=== PATIENT | female | born 1950 | race Caucasian/White ===

== ENCOUNTER → 2018-08-17 15:33 | Outpatient (CLI) | payer MEDICARE, SELFPAY ==
[2018-08-17 15:47] LABS: Pathologist Comment May follow
[2018-08-17 18:07] LABS: RBC /Synovial Fluid 0.003 10^6/uL (0); Synovial Fld Polynuclear WBC # 3.585 10^3/ul
[2018-08-17 18:09] LABS: AUTO B FLUID DILUENT BKGD CT WBC <0.1 RBC <0.01 (W<.1,R<.01); Appearance /Synovial Fluid Sl Cl (CLEAR); Color / Synovial Fluid Yellow (Pale Yellow); Lymph 2 %; Monocyte /Synovial Fluid 9 %; Neutrophil 89 % (0-25); Source / Synovial Fluid NG; Source- Body Fluid SYNOVIAL
[2018-08-17 18:10] LABS: Body Fluid QC Type(s) BF1Q,BF2Q
[2018-08-20 13:56] LABS: Pathologist Review Reviewed
--- OUTSIDE RECORDS SUMMARY | 2018-11-21 06:30 | XMS RPT_ITS ---
:1950 Author Organization OHIP Support Name Relationship Address Phone AKHIL HOANG Unavailable [address] + [place] [address] R Unavailable Unavailable Unavailable AKHIL HOANG Unavailable [address] + [place] [address] R Unavailable Unavailable Unavailable R Unavailable Unavailable Unavailable NOT GIVEN Unavailable Unavailable Unavailable AKHIL HOANG Unavailable [address] [place] [address] TINA CANADA Unavailable Unavailable + NOT GIVEN Unavailable Unavailable Unavailable AKHIL HOANG Unavailable [address] [place] [address] TINA CANADA Unavailable Unavailable + NOT GIVEN Unavailable Unavailable Unavailable AKHIL HOANG Unavailable [address] [place] [address] TINA CANADA Unavailable Unavailable + NOT GIVEN Unavailable Unavailable Unavailable AKHIL HOANG Unavailable [address] [place] [address] TINA CANADA Unavailable Unavailable + NOT GIVEN Unavailable Unavailable Unavailable AKHIL HOANG Unavailable [address] [place] [address] TINA CANADA Unavailable Unavailable + AKHIL HOANG Unavailable [address] [place] [address] TINA CANADA Unavailable Unavailable + Care Team Providers Name Role Phone BHAVANI MORAN MD Admitting Unavailable BHAVANI MORAN MD Attending Unavailable BHAVANI MORAN MD Primary Care Unavailable BHAVANI MORAN MD Consulting Unavailable PROVIDER, UNKNOWN Consulting Unavailable PROVIDER, UNKNOWN Consulting Unavailable BHAVANI MORAN MD Admitting Unavailable BHAVANI MORAN MD Attending Unavailable BHAVANI MORAN MD Primary Care Unavailable BHAVANI MORAN MD Consulting Unavailable PROVIDER, UNKNOWN Consulting Unavailable PROVIDER, UNKNOWN Consulting Unavailable PROVIDER, UNKNOWN Consulting Unavailable ADRIANE DONG MD Admitting Unavailable ADRIANE DONG MD Attending Unavailable ADRIANE DONG MD Primary Care Unavailable BHAVANI MORAN MD Consulting Unavailable PROVIDER, UNKNOWN Consulting Unavailable PROVIDER, UNKNOWN Consulting Unavailable PROVIDER, UNKNOWN Consulting Unavailable BHAVANI MORAN MD Admitting Unavailable BHAVANI MORAN MD Attending Unavailable BHAVANI MORAN MD Primary Care Unavailable BHAVANI MORAN MD Consulting Unavailable PROVIDER, UNKNOWN Consulting Unavailable PROVIDER, UNKNOWN Consulting Unavailable PROVIDER, UNKNOWN Consulting Unavailable BHAVANI MORAN MD Admitting Unavailable BHAVANI MORAN MD Attending Unavailable BHAVANI MORAN MD Primary Care Unavailable BHAVANI MORAN MD Consulting Unavailable PROVIDER, UNKNOWN Consulting Unavailable PROVIDER, UNKNOWN Consulting Unavailable PROVIDER, UNKNOWN Consulting Unavailable BHAVANI MORAN MD Admitting Unavailable BHAVANI MORAN MD Attending Unavailable BHAVANI MORAN MD Primary Care Unavailable BHAVANI MORAN MD Consulting Unavailable PROVIDER, UNKNOWN Consulting Unavailable PROVIDER, UNKNOWN Consulting Unavailable PROVIDER, UNKNOWN Consulting Unavailable DEAN ACUNA, DR. Elver BECKHAM Attending Unavailable DEAN ACUNA, DR. 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 without organ or systems involvement / M05.79(ICD-10) 07/02/2018 Admitting Bladimir's diseaseDEAN MD., Active Janice [facility] Diagnosis [facility] [place] / M02.30(ICD-10) Repository 05/22/2018 Admitting Localized DEAN ACUNA, Active [facility] Diagnosis swelling, mass J [facility] and lump, left Repository lower limb / R22.42(ICD-10) PROCEDURES PROCEDURES No Procedure Records FoundRESULTS RESULTS MISCELLANEOUS LAB Collected: 09/06/2018 Status: F Source: [place] PROCEDURE 7:11 AM [facility] REPOSITORY Order Comment: Comments: VECTRA Test(s) Ordered: VECTRA TYPE CODE TESTS RESULT OUT OF RANGE REFERENCE UNITS LAB L801.1541 Normal [facility] TEST Result Comment: Sent directly to testing facility per ordering physician. @ 09/17/18 1347 MYOUNG Performed By: #### L801.1541 #### [facility] [place], [address] CBC W/DIFF, AUTOMATED Collected: 08/24/2018 Status: C Source: [place] 8:09 AM [facility] REPOSITORY TYPE CODE TESTS RESULT OUT OF RANGE REFERENCE UNITS LAB L100.1000 4.4-11.0 K/mm3 High WBC 19.7 LAB L100.1200 4.2-5.4 M/mm3 Normal RBC 5.03 LAB L100.1300 12.0-15.0 g/dl Normal HGB 14.3 LAB L100.1400 37-47 % Normal HCT 44.0 LAB L100.1500 81-99 fL Normal MCV 87.5 LAB L100.1600 27.0-32.0 pg Normal MCH 28.4 LAB L100.1700 32-36 g/gl Normal MCHC 32.5 LAB L100.1810 11.6-14.6 % High RDW CV 14.9 LAB L100.1820 35.1-43.9 fl High RDW SD 47.8 LAB L100.1900 150-450 K/mm3 Normal PLT 362 LAB L100.2000 6.2-12.0 fl Normal MPV 10.4 LAB L100.2100 47-70 % High NEUT% 82.3 LAB L100.2200 19-41 % Low LY% 8.7 LAB L100.2300 0-10 % Normal MONO% 5.5 LAB L100.2400 0-5 % Normal EO% 0.5 LAB L100.2500 0-1 % Normal BASO% 0.3 LAB L100.2550 0.0-0.9 % High IM GRAN % 2.700 Result Comment: IG% - Immature Granulocytes (promyelocytes, myelocytes and metamyelocytes) > 1% indicates that a LEFT SHIFT is Present. LAB L100.2620 2.0-7.7 X10 3/uL High Absolute Neut 16.2 LAB L100.2720 0.83-4.51 X10 3/ul Normal Absolute Lymph 1.72 LAB L100.9900 Normal PATH REV Reviewed Result Comment: Neutrophilic leukocytosis. Clinical correlation necessary. Hammad Hdez M.D. 08/27/18 AMENDED REPORT 08/27/18 1000 PATH REV previously reported as: January nell Performed By: #### L100.0100 #### [facility] [address] [place], [address] COMPREHENSIVE METABOLIC Collected: 08/24/2018 Status: F Source: [place] [facility] 8:09 AM [facility] REPOSITORY TYPE CODE TESTS RESULT OUT OF RANGE REFERENCE UNITS LAB L501.0100 74-106 mg/dL High GLU 119 Result Comment: Fasting Glucose result from 100 to 125 mg/dL suggests IMPAIRED HOMEOSTASIS per A.D.A. criteria. Please note revised GLUCOSE reference range effective 2017. LAB L501.1000 7-18 mg/dL High BUN 22 LAB L501.1100 0.55-1.02 mg/dL Normal CREAT,SERUM 0.72 Result Comment: The validity of the calculated GFR AND GFRAA in patients over 70 years has not been determined. Clinical correlation is essential. LAB L501.1110 >60 mL/min Normal EST GFR 85 Result Comment: Non- GFR Calc LAB L501.1115 >60 mL/min Normal EST GFR - AA 103 Result Comment: GFR Calc LAB L501.1300 10-20 RATIO High BUN/CRE 30.5 LAB L501.1500 6.4-8.2 g/dL T Normal PROT 7.4 LAB L501.1800 3.2-5.0 g/dL Normal ALB 3.5 LAB L501.1950 2.2-4.2 g/dL Normal GLOB 3.9 LAB L501.2000 0.9-2.4 RATIO Normal A/G 0.9 LAB L501.2200 8.5-10.1 mg/dL CA Normal 8.9 LAB L501.4100 15-37 U/L Normal AST 18 LAB L501.4305 45-117 U/L Normal ALK P 92 LAB L501.4405 13-56 U/L Normal ALT 40 LAB L501.4600 0.20-1.00 mg/dL T Normal BILI 0.30 LAB L501.5300 136-145 mmol/L NA Normal 142 LAB L501.5600 3.5-5.1 mmol/L K Normal 3.8 LAB L501.5900 98-107 mmol/L CL Normal 105 LAB L501.6100 21.0-32.0 mmol/L Normal CO2 28.0 LAB L501.6200 5-15 Normal GAP 9 Performed By: #### L500.4050, L505.7010 #### [facility] [address] [place], [place], [address] RHEUMATOID FACTOR Collected: 08/24/2018 Status: F Source: [place] 8:09 AM [facility] REPOSITORY TYPE CODE TESTS RESULT OUT OF REFERENCE UNITS RANGE LAB L505.7010 <15 IU/mL High RHEUMATOID FAC 706.0 Performed By: #### L500.4050, L505.7010 #### [facility] [address] [place], [place], [id number] HEPATITIS B SURFACE Collected: 08/24/2018 Status: F Source: [place] AG 8:09 AM [facility] REPOSITORY TYPE CODE TESTS RESULT OUT OF RANGE REFERENCE UNITS LAB L3100.0400 Negative Normal HB Negative SURF AG Result Comment: Performed at: - [facility] [address] [id number] Revenue Cycle Administrator: Rogelio Patel PhD, Phone: [phone] Performed at: - [facility] [address] [id number] Revenue Cycle Administrator: Caroline Montesinos MD, Phone: [phone] Performed By: #### L3100.0390, L3100.0528, L3100.0625, L4600.0100 #### [facility] (refer to report for specific site) refer to report for address and phone number HEP B SURFACE Collected: 08/24/2018 Status: F Source: [place] ANTIBODIES 8:09 AM [facility] REPOSITORY TYPE CODE TESTS RESULT OUT OF RANGE REFERENCE UNITS LAB L3100.0528 . Normal Hep B Non Reactive Rena AB Result Comment: Non Reactive: Inconsistent with immunity, less than 10 mIU/mL Reactive: Consistent with immunity, greater than 9.9 mIU/mL Performed By: #### L3100.0390, L3100.0528, L3100.0625, L4600.0100 #### [facility] (refer to report for specific site) refer to report for address and phone number HEPATITIS C ANTIBODIES Collected: 08/24/2018 Status: F Source: [place] 8:09 AM [facility] REPOSITORY TYPE CODE TESTS RESULT OUT OF RANGE REFERENCE UNITS LAB L3100.0650 0.0-0.9 s/co ratio Normal HEP C AB <0.1 Result Comment: Negative: < 0.8 Indeterminate: 0.8 - 0.9 Positive: > 0.9 The CDC recommends that a positive HCV antibody result be followed up with a HCV Nucleic Acid Amplification test (123348). Performed By: #### L3100.0390, L3100.0528, L3100.0625, L4600.0100 #### [facility] (refer to report for specific site) refer to report for address and phone number CCP IGG ANTIBODIES Collected: 08/24/2018 Status: F Source: [place] 8:09 AM [facility] REPOSITORY TYPE CODE TESTS RESULT OUT OF REFERENCE UNITS RANGE LAB L4600.0100 0-19 units High ANTI-CCP > 250 [id number] Result Comment: Negative <20 Weak positive 20 - 39 Moderate positive 40 - 59 Strong positive >59 Performed By: #### L3100.0390, L3100.0528, L3100.0625, L4600.0100 #### [facility] (refer to report for specific site) refer to report for address and phone number SYNOVIAL FLUID RBC, Collected: 08/17/2018 Status: F Source: [place] WBC AND DIFF 9:40 AM [facility] REPOSITORY TYPE CODE TESTS RESULT OUT OF RANGE REFERENCE UNITS LAB L200.5050 0.000-0.000 10 3 uL High SYN Tot 7.[address] Result Comment: This is the Total Number of Nucleated Cell Types in the Body Fluid. LAB L200.5100 0 10 6/uL High SYNOVIAL RBC 0.003 LAB L200.5200 0.000-0.002 10 3uL High SYNOVIAL WBC 7.4680 LAB L200.5260 % SYBF PMN Normal WBC% 48.0 LAB L200.5270 10 3/ul SYBF PMN Normal WBC# 3.585 LAB L200.5280 % SYBF MN Normal WBC% 52.0 LAB L200.5800 PATH Normal COM/SYFL May follow LAB L200.4600 SYNOVIAL Normal SOURCE NG LAB L200.4900 Pale Yellow SYNOVIAL Normal COLOR Yellow LAB L200.5000 CLEAR SYNOVIAL Normal FABIANO. Sl Cl LAB L200.5300 0-25 % High NEUTROPHIL 89 LAB L200.5400 % LYMPH Normal 2 LAB L200.5500 % MONO Normal 9 Performed By: #### L200.0400, L200.4175 #### [facility] [address] [place], [address] CRYSTALS, BODY FLUID Collected: 08/17/2018 Status: C Source: [place] 9:40 AM [facility] REPOSITORY TYPE CODE TESTS RESULT OUT OF RANGE REFERENCE UNITS LAB L200.4200 Normal SEE PATH REV CRYSTALS/BF LAB L200.4225 Normal SYNOVIAL SOURCE/BF LAB L200.6020 Normal PATH Reviewed REV Result Comment: Negative for malignant cells and crystals. Acute inflammation. Hammad Hdez M.D. 08/20/18 AMENDED REPORT 08/20/18 1356 PATH REV previously reported as: Will follow Performed By: #### L200.0400, L200.4175 #### [facility] [address] [place], [address] Observed: 08/17/2018 Status: F Source: [place] CULTURE, BODY FLUID 9:40 AM [facility] REPOSITORY List Antibiotics Last 48 Hours? UNK List Antibiotics to be Started? UNK Gram Stain Gram Stain 2+ White Blood Cells 2+ Red Blood Cells No organisms seen Body Fluid Cult No growth in 6 days. Cult, Anaerobic No growth in 5 days. Performed By: #### M100.1300 #### [facility] [address] [place], [address] CBC Collected: 07/02/2018 Status: F Source: [facility] 11:24 AM [facility] REPOSITORY TYPE CODE TESTS RESULT OUT OF REFERENCE UNITS RANGE LAB WBC(LOINC) 4.50-10.80 10 3/mcL High WBC 10.90 LAB RBCCT(LOINC 4.10-5.30 10 6/mcL ) RBC 4.59 LAB HGB(LOINC) 12.0-16.0 G/dL Hgb 13.6 LAB HCT(LOINC) 34.0-46.0 % Hct 40.6 LAB MCV(LOINC) 80.0-99.0 fL MCV 88.5 LAB MCH(LOINC) 27.0-33.0 pg MCH 29.7 LAB MCHC(LOINC) 32.0-36.0 G/dL MCHC 33.6 LAB RDW(LOINC) 11.5-15.5 % RDW 14.5 LAB PLT(LOINC) 150-450 10 3/mcL Platelet 356 LAB MPV(LOINC) 6.6-10.5 fL MPV 9.6 Performed By: #### CBC, ADIFF, ANEU, ESR, RF, TIERNEY, JUAN #### [address] [address] .AUTO DIFF Collected: 07/02/2018 Status: F Source: [facility] 11:24 AM [facility] REPOSITORY TYPE CODE TESTS RESULT OUT OF REFERENCE UNITS RANGE LAB NICKOLAS(LOINC) 50.0-75.0 % Neutrophil % 72.6 LAB LYM(LOINC) 20.0-40.0 % Low Lymphocyte % 16.8 LAB MON(LOINC) 2.0-13.0 % Monocyte % 8.3 LAB EO(LOINC) 0.0-6.0 % Eosinophil % 1.7 LAB BAS(LOINC) 0.0-2.5 % Basophil % 0.6 LAB ABLYM(LOIN 0.90-4.32 10 3/mcL C) Lymphocyte, 1.80 Absolute LAB MARTIN(LOINC 0.09-1.40 10 3/mcL ) Monocyte, 0.90 Absolute LAB AEOS(LOINC 0.00-0.65 10 3/mcL ) Eosinophil, 0.20 Absolute LAB ABAS(LOINC 0.00-0.27 10 3/mcL ) Basophil, 0.10 Absolute Performed By: #### CBC, ADIFF, ANEU, ESR, RF, TIERNEY, JUAN #### [address] [address] .NEUABS Collected: 07/02/2018 Status: F Source: [facility] 11:24 AM [facility] REPOSITORY TYPE CODE TESTS RESULT OUT OF REFERENCE UNITS RANGE LAB ANEU(LOINC) 2.25-8.10 10 3/mcL Neutrophil, 7.90 Absolute Performed By: #### CBC, ADIFF, ANEU, ESR, RF, TIERNEY, JUAN #### [place] [id number] ESR Collected: 07/02/2018 Status: F Source: [facility] 11:24 AM [facility] REPOSITORY TYPE CODE TESTS RESULT OUT OF REFERENCE UNITS RANGE LAB ESR(LOINC) 0-30 mm/hr Erythrocyte High Sed Rate 32 Performed By: #### CBC, ADIFF, ANEU, ESR, RF, TIERNEY, JUAN #### [place] [address] RF Collected: 07/02/2018 Status: F Source: [facility] 11:24 AM [facility] REPOSITORY TYPE CODE TESTS RESULT OUT OF REFERENCE UNITS RANGE LAB RF(LOINC) Rheumatoid >196.4 Factor Result Comment: RF IgM Antibody by Enzyme Immunoassay: Negative < or = 6 Positive > 6 A positive result indicates the presence of RF antibodies and suggests the possibility of rheumatoid arthritis. A negative result indicates no RF IgM antibody or levels below the negative cut-off of the assay. Results of this assay should be used in conjunction with clinical findings and other serological tests. These results were obtained with the Ambassador QUANTA Lite RF IgM RAOUL. RF IgM values obtained with different manufacturers' assay methods may not be used interchangeably. The magnitude of the reported IgM levels cannot be correlated to an endpoint titer. Performed By: #### CBC, ADIFF, ANEU, ESR, RF, TIERNEY, JUAN #### [place] [address] TIERNEY Collected: 07/02/2018 Status: F Source: [facility] 11:24 AM [facility] REPOSITORY TYPE CODE TESTS RESULT OUT OF RANGE REFERENCE UNITS LAB TIERNEY(LOINC) Neg 40 TIERNEY See Titer Performed By: #### CBC, ADIFF, ANEU, ESR, RF, TIERNEY, JUAN #### [place] [address] JUAN Collected: 07/02/2018 Status: F Source: [facility] 11:24 AM [facility] REPOSITORY TYPE CODE TESTS RESULT OUT OF REFERENCE UNITS RANGE LAB ANAT1(LOIN C) 40 TIERNEY Titer 1 LAB ANAP1(LOIN C) Homogeneous TIERNEY Pattern 1 Result Comment: At [place], an TIERNEY titer of less than 160 is not considered suggestive of significant rheumatoid disease. If clinical suspicion is high, suggest repeat testing in 1-2 months. Performed By: #### CBC, ADIFF, ANEU, ESR, RF, TIERNEY, JUAN #### [facility] [address] [place] [address] TIB/FIB C+ LT Observed: 05/23/2018 Status: F Source: [place] 1:24 PM [facility] [address] [place], [place] [address] Patient: LASHELL HOANG Phone#: : 1950 Age: 68 Gender: F Pt. Type: Out Account: [id number] Location: Ordering: BHAVANI HOSKINS Exam Date: 05/23/2018/13:04 Family Phys: PHYSICIAN Charge Code: [id number] Physician: [place] Order #: [id number] DLP Dose#: PROCEDURE: CT TIB FIB LT WITH CONTRAST COMPARISON: [facility], , VENOUS DOPPLER LT LEG, 05/21/2018, 12:49. [facility], VENOUS DOPPLER LT LEG, 05/10/2018, 15:06. INDICATIONS: Left leg mass TECHNIQUE: After obtaining the patient's consent, multi-planar CT images were created without and with non-ionic intravenous contrast material. All CT scans at this facility use dose modulation, iterative reconstruction, and/or weight based dosing when appropriate to reduce radiation dose to as low as reasonably achievable. IV CONTRAST: Omnipaque 350,70ml TOTAL DOSE: 13.50 CTDIvol(mGy) FINDINGS: BONES: No fracture or dislocation. Fabella incidentally noted. There are subchondral cyst formation in the lateral compartment with femoral and tibial spurring. SOFT TISSUES: Posterior to the knee is a Odom's cysts. This corresponds to the ultrasound finding. The Odom's cyst demonstrates mild rim enhancement. The collection measures 10.8 x 2.1 x 4.7 cm. The fluid collection contains numerous radiolucent foci throughout the fluid. The foci measure H. U -469 to -678, most consistent with gas. EFFUSION: There is a trace joint effusion. OTHER: Negative. CONCLUSION: 1. Large Odom's cyst demonstrating mild peripheral enhancement and internal foci of gas. This appearance is most worrisome for infection, however rarely gas containing stones may appear similar. 2. Degenerative changes of the lateral compartment. Continued Report - Page 2 of 2 Patient: LASHELL HOANG Phone#: : 1950 Age: 68 Gender: F Pt. Type: Out Account: [id number] Location: Ordering: BHAVANI MORAN Exam Date: 05/23/2018/13:04 Family Phys: PHYSICIAN Charge Code: [id number] Physician: [place] Order #: [id number] DLP Dose#: This report was communicated by telephone to Monique Melissa RN, at the dictation time shown below. Dictated by: Jocelyn Cisse MD on 05/23/2018 at 16:29 Approved by: Jocelyn Cisse MD on 05/23/2018 at 16:34 BMP Collected: 05/22/2018 Status: F Source: [place] 10:46 AM [facility] REPOSITORY TYPE CODE TESTS RESULT OUT OF REFERENCE UNITS RANGE LAB GLU(LOINC) 82-115 mg/dL Glucose High Level 140 LAB NA(LOINC) 136-145 mEq/L Sodium Level 139 LAB K(LOINC) 3.5-5.0 mEq/L Potassium Level 3.6 LAB CL(LOINC) 98-110 mEq/L Chloride 102 LAB CO2(LOINC) 22-32 mEq/L CO2 25 LAB EBAL(LOINC 4.0-15.0 mEq/L ) Electrolyte Balance 12.0 LAB BUN(LOINC) 8.0-22.0 mg/dL BUN 20.0 LAB CRE(LOINC) 0.50-1.20 mg/dL Creatinine Lvl (s) 0.55 LAB BC(LOINC) 10.0-22.0 ratio High BUN/Creatinine 36.4 Ratio LAB CA(LOINC) 8.4-10.1 mg/dL Calcium Lvl 9.9 Performed By: #### BMP, GFR #### [place] [address] .GFR Collected: 05/22/2018 Status: F Source: [facility] 10:46 AM [facility] REPOSITORY TYPE CODE TESTS RESULT OUT OF REFERENCE UNITS RANGE LAB GFRAA(LOINC ml/min/1.73 ) sqm GFR >60 [place] Result Comment: GFR Population mean for , Non- Americans Ages 20-29 = 116 mL/min/1.73 sq.m. Ages 30-39 = 107 mL/min/1.73 sq.m. Ages 40-49 = 99 mL/min/1.73 sq.m. Ages 50-59 = 93 mL/min/1.73 sq.m. Ages 60-69 = 85 mL/min/1.73 sq.m. Ages 70+ = 75 mL/min/1.73 sq.m. Chronic Kidney Disease: Less than 60 mL/min/1.73 square meters End Stage Renal Disease: Less than 15 mL/min/1.73 square meters LAB GFRNO(LOINC) ml/min/1.73sqm GFR Non- >60 Result Comment: GFR Population mean for , Non- Americans Ages 20-29 = 116 mL/min/1.73 sq.m. Ages 30-39 = 107 mL/min/1.73 sq.m. Ages 40-49 = 99 mL/min/1.73 sq.m. Ages 50-59 = 93 mL/min/1.73 sq.m. Ages 60-69 = 85 mL/min/1.73 sq.m. Ages 70+ = 75 mL/min/1.73 sq.m. Chronic Kidney Disease: Less than 60 mL/min/1.73 square meters End Stage Renal Disease: Less than 15 mL/min/1.73 square meters Performed By: #### BMP, GFR #### [place] [address] CV VENOUS LEG LT Observed: 05/21/2018 Status: F Source: [place] 1:32 PM [place] [address] Patient: LASHELL HOANG Phone#: : 1950 Age: 68 Gender: F Pt. Type: Out Account: [id number] Location: Ordering: BHAVANI MORAN Exam Date: 05/21/2018/12:49 Family Phys: Charge Code: [id number] Physician: [place] Order #: [id number] DLP Dose#: PROCEDURE: VENOUS DOPPLER LT LEG COMPARISON: [facility], , VENOUS DOPPLER LT LEG, 05/10/2018, 15:06. INDICATIONS: Swelling TECHNIQUE: Color duplex Doppler ultrasound evaluation analysis was performed in the usual manner. ADVANCED MANUFACTURING TECHNICIAN: JOHNNY RISK FACTORS FOR VENOUS DISEASE: Other Pain and swelling EXAMINATION: RIGHT +Present -Reduced o Absent LEFT SPONT PHASIC AUG REFLUX COMP SPONT PHASIC AUG REFLUX COMP + + + o + CFV + + + o + SFJ + FV (prox) + + + o + FV (mid) + FV (dist) + POP V + + + o + T/P TRUNK + + + o + PTV + + + o + PERONEAL V + + + o + GSV + GASTROC SOLEAL V ADVANCED MANUFACTURING TECHNICIAN'S NOTES: Continued Report - Page 2 of 2 Patient: LASHELL HOANG Phone#: : 1950 Age: 68 Gender: F Pt. Type: Out Account: [id number] Location: Ordering: BHAVANI MORAN Exam Date: 05/21/2018/12:49 Family Phys: Charge Code: [id number] Physician: [place] Order #: [id number] DLP Dose#: A heterogenous structure containing some blood flow is noted in the popliteal fossa and extends into the mid posterior calf. FINDINGS: THROMBI: None visible. COMPRESSIBILITY: Normal. OTHER: In the posterior calf extending from the popliteal fossa to the mid posterior calf is a complex mass with internal cystic components and internal blood flow. In cross section the mass measures 4.8 x 2.3 cm. CONCLUSION: 1. No evidence of deep venous thrombosis in the left lower extremity. 2. Posterior mass extending from the popliteal fossa to the mid calf. Recommend further evaluation with contrast-enhanced MRI or CT. Dictated by: Jocelyn Cisse MD on 05/21/2018 at 13:50 Approved by: Jocelyn Cisse MD on 05/21/2018 at 13:50 D-DIMER, QUANTITATIVE Collected: 05/21/2018 Status: F Source: [facility] [place] 8:15 AM [facility] REPOSITORY TYPE CODE TESTS RESULT OUT OF REFERENCE UNITS RANGE LAB D-DIMER, QUANTITATI VE(LOINC) D-DIMER, QUANTITATIVE Result Comment: QUANT D-DIMER LAB D-DIMER 0 - 230 ng/ml QUANT(LOINC) High D-DIMER QUANT 5850 Performed By: #### [id number] #### [facility],[address] [place], [place] [id number] CV VENOUS LEG LT Observed: 05/10/2018 Status: F Source: [place] 3:32 PM [place] [id number] Patient: LASHELL HOANG Phone#: : 1950 Age: 68 Gender: F Pt. Type: Out Account: [id number] Location: Ordering: ADRIANE DONG Exam Date: 05/10/2018/15:06 Family Phys: BHAVANI MORAN Charge Code: [id number] Physician: [place] Order #: [id number] DLP Dose#: PROCEDURE: VENOUS DOPPLER LT LEG COMPARISON: None. INDICATIONS: Swelling TECHNIQUE: Color duplex Doppler ultrasound evaluation analysis was performed in the usual manner. ADVANCED MANUFACTURING TECHNICIAN: JUD RISK FACTORS FOR VENOUS DISEASE: EXAMINATION: RIGHT +Present -Reduced o Absent LEFT SPONT PHASIC AUG REFLUX COMP SPONT PHASIC AUG REFLUX COMP + + + o + CFV + + + o + SFJ + FV (prox) + + + o + FV (mid) + FV (dist) + POP V + + + + + T/P TRUNK + + + o + PTV + + + o + PERONEAL V + + + o + GSV + GASTROC SOLEAL V ADVANCED MANUFACTURING TECHNICIAN'S NOTES: Continued Report - Page 2 of 2 Patient: LASHELL HOANG Phone#: : 1950 Age: 68 Gender: F Pt. Type: Out Account: [id number] Location: Ordering: ADRIANE DONG Exam Date: 05/10/2018/15:06 Family Phys: BHAVANI MORAN Charge Code: [id number] Physician: [place] Order #: [id number] DLP Dose#: FINDINGS: THROMBI: None visible. COMPRESSIBILITY: Normal. OTHER: Reflux is present in the popliteal vein. Kendall complex cystic focus in the popliteal fossa is consistent with a popliteal cyst.. CONCLUSION: 1. There is no evidence of superficial or deep vein thrombus. 2. Probable popliteal cyst. Dictated by: Uma Robertson MD on 05/10/2018 at 15:54 Approved by: Uma Robertson MD on 05/10/2018 at 15:54 CV ECHO COMPLETE Observed: 02/12/2018 Status: F Source: [place] 9:39 AM [place] [id number] Patient: LASHELL HOANG Phone#: : 1950 Age: 67 Gender: F Pt. Type: Out Account: [id number] Location: Ordering: [employer] Exam Date: 02/12/2018/8:53 Family Phys: Charge Code: [id number] Physician: Bath Order #: [id number] DLP Dose#: PROCEDURE: ECHOCARDIOGRAM WITH DOPPLER AND COLOR FLOW HISTORY: 67-year-old female with history of mitral valve prolapse, hypertension INDICATIONS: Heart murmur TECHNIQUE: A 2-D ultrasound, color spectral Doppler and M-mode evaluation of the heart and great vessels. PATIENT MEASUREMENTS: Height (in.): 67 BSA: 1.9 Weight (lbs.): 170 BP: 120/76 Bead Supervisor: JUD M MODE 2D MEASUREMENTS AND CALCULATIONS: LVIDd: 5.40 cm LVIDs: 3.08 cm IVSd: 1.24 cm LVPWd: 1.05 cm FS: 43.07 % Ao Root diam: 2.75 cm LA diam: 3.42 cm LA Volume Index: 22.6 mL/m2 LA A4 Area: 15.66 cm2 RA A4 Area: 11.1 cm RVDd: 2.97 cm TAPSE: 22 mm DOPPLER MEASUREMENTS AND CALCULATIONS MITRAL MV E MAX jonas: 109.59 cm/s MV A MAX jonas: 91.11 cm/s MV E-A ratio: 1.20 Lat Peak E' Jonas 6 cm/s Septal Peak E' JONAS 5 cm/s Continued Report - Page 2 of 3 Patient: LASHELL HOANGBlas Phone#: : 1950 Age: 67 Gender: F Pt. Type: Out Account: [id number] Location: Ordering: [facility]AN Exam Date: 02/12/2018/8:53 Family Phys: Charge Code: [id number] Physician: Bath Order #: [id number] DLP Dose#: Lateral E./E.' 17.3 Medial E./E.' 21.4 AORTIC Ao V2 max: 163.85 cm/s Ao max P.74 mm[Hg] LV V1 Max 73.16 cm/s LV V1 Max PG 2.14 mm[Hg] PULMONIC PA V2 Max 88.36 cm/s PA Max PG 3.12 mm[Hg] TRICUSPID TR Max Jonas 263.99 cm/s TR max PG 27.88 mm[Hg] RVSP 31 mmHg 2D/M-MODE AND COLOR FLOW LEFT VENTRICLE: Mild concentric left ventricle hypertrophy. Normal left ventricle size. Normal wall motion and systolic function, ejection fraction 55-60%. Indeterminate diastolic function. WALL MOTION: 1 - Basal anterior: Normal. 7 - Mid anterior: Normal. 13 - Apical anterior: Normal. 2 - Basal anteroseptal: Normal. 8 - Mid anteroseptal: Normal. 14 - Apical septal: Normal. 3 - Basal inferoseptal: Normal. 9 - Mid inferoseptal: Normal. 15 - Apical inferior: Normal. 4 - Basal inferior: Normal. 10-Mid inferior: Normal. 16 - Apical lateral: Normal. 5 - Basal inferolateral: Normal. 11-Mid inferolateral: Normal. 6 - Basal anterolateral: Normal. 12-Mid anterolateral: Normal. RIGHT VENTRICLE: Normal size and systolic function. LEFT ATRIUM: Normal RIGHT ATRIUM: Normal MITRAL VALVE: Mild anterior mitral valve leaflet prolapse. Mild mitral regurgitation. TRICUSPID VALVE: Normal leaflet structure and mobility. Trace tricuspid regurgitation. AORTIC VALVE: Trileaflet aortic valve with mild diffuse thickening. Mild aortic sclerosis with no significant aortic stenosis. PULMONIC VALVE: Normal leaflet structure and mobility. Mild pulmonic insufficiency. AORTIC ROOT: Normal IVC/SVC: Normal size and normal respirophasic response PERICARDIUM: Trace to small pericardial effusion with no tamponade physiology CONCLUSION: 1. Mild concentric left ventricle hypertrophy and normal wall motion and systolic, ejection fraction 55-60%. 2. Normal right ventricle size and systolic function. Continued Report - Page 3 of 3 Patient: LASHELL HOANG Phone#: : 1950 Age: 67 Gender: F Pt. Type: Out Account: [id number] Location: Ordering: [facility] Exam Date: 02/12/2018/8:53 Family Phys: Charge Code: [id number] Physician: Bath Order #: [id number] DLP Dose#: 3. Mild anterior mitral valve leaflet prolapse with mild mitral regurgitation. 4. Mild aortic sclerosis with precipitated stenosis. 5. Mild pulmonic insufficiency. 6. Indeterminate diastolic function. 7. RVSP estimated to be 31 mmHg. 8. Trace to small pericardial effusion no tamponade physiology noted. 9. No prior study available for comparison. Dictated by: CHANNING REEVES on 02/13/2018 at 10:56 Approved by: CHANNING REEVES on 02/13/2018 at 10:56 ALLERGIES ALLERGIES DATE TYPE / CODE NAME / CODE REACTION SEVERITY SOURCE Miscellaneous No Known Moderate Maximilian Pomerene Allergy/[id number](S Allergies ([facility]) Modifier) Hospital (Qualifier Repository Value) ENCOUNTERS ENCOUNTERS ADMIT/DISCHARGE ACCOUNT NUMBER ADMITTING ENCOUNTER LOCATION SOURCE CLASS 09/06/2018 [id number] [facility] ding:MTLAB Repository 08/24/2018 [id number] [facility] ding:MTLAB Repository 08/17/2018 [id number] [facility] ding:LABSPEC Repository 07/02/2018/07/06/20 [id number] Ambulatory [address] BBuilding:[facility]AN [facility] Repository 05/23/2018/05/23/20 [id number] BHAVANI MORAN Ambulatory Maximilian Pomerene 18 [facility] Repository 05/22/2018/05/26/[id number] BBuilding:CRISTIANO [facility] Repository 05/21/2018/05/21/20 [id number] BHAVANI MORAN Ambulatory Maximilian Pomerene 18 [facility] Repository 05/21/2018/05/21/20 [id number] BHAVANI MORAN Ambulatory Maximilina Pomerene 18 [facility] Repository 05/10/2018/05/10/20 [id number] ADRIANE DONG MD [address] Repository 04/06/2018 [id number] [facility] 02/12/2018/02/13/20 [id number] BHAVANI MORAN [address] Repository PAYERS PAYERS ENCOUNTER GUARANTOR PAYER SUBSCRIBER SOURCE 09/06/2018 LASHELL Franco Primary LASHELL Enriquez [id number] SR Insurance:MEDICARE OSBORNDOB: [address], PART A [facility]: [id number] [address]Lqr: [id number] Repository Date:2018-09-06 () 09/06/2018 Secondary LASHELL Franco [place] Insurance:MEDICAL OSBORNDOB: [facility] [id number] Hospital Number: Repository [id number] Date:5764-74-79[address], [place] [address]UG: 09/06/2018 Tertiary NOT GIVENUNK [place] Insurance:SELF PAY [facility] Number: Effective Repository Date:2018-09-06 08/24/2018 LASHELL Franco Primary LASHELL Aloster [id number] SR Insurance:MEDICARE OSBORNDOB: [address], PART A olicy Number: [id number] [id number]: [id number] Repository Date:2018-08-24 () 08/24/2018 Secondary LASHELL Franco [place] Insurance:MEDICAL OSBORNDOB: [facility] [id number] Hospital Number: Repository [id number] Date:8085-34-30[place] [address] [place] [address]FQ: 08/24/2018 Tertiary NOT GIVENUNK [place] Insurance:SELF PAY [facility] Number: Effective Repository Date:2018-08-24 08/17/2018 LASHELL T Primary LASHELL Aloster [id number] SR Insurance:MEDICARE OSBORNDOB: [address], PART A BPolicy Number: [id number] [facility] [address]Syc: [id number] Repository Date:2018-08-17 () 08/17/2018 Secondary NOT GIVENUNK [place] Insurance:SELF PAY [facility] Number: Effective Repository Date:2018-08-17 07/02/2018 LASHELL Primary [facility] OSBORNDOB: Insurance:MEDICARE OSBORNDOB: [facility] PART BPolicy Number: [id number] [place] [address], Date:2018-07-02 - [address] [place] [address]Vwc: [id number] [place] [address]Aan: Name:[facility] ()Tel: (000) Administrators LLCPO () () [address] [place] [address] 000-0000 (WP) 20[address]RP: 07/02/2018 Secondary [facility] Insurance:MEDICAL OSBORNDOB: [facility] 6018[facility] [id number] Repository Number: [address] [id number] [address] [place] [address], Date:2018-07-02 - [place] [address]Fuj: [id number] Name:[facility] CELINA ()Tel: (000) [address], [place] 000-0000 (WP) [address]PQ: 05/23/2018 LASHELL T Primary Insurance:[facility] LASHELL iGll OSBORNDOB: MEDICARE OSBORNDOB: [facility] OUTPATIENTPolregional [facility] [id number] Number: [address] Repository [address] [place] [address], [id number] [address] [place] [address] [id number]: Date:Plan Name:[facility] [id number] () 05/23/2018 Secondary LASHELL Olivarezvladimirfaraz Insurance:MEDICAL OSBORNDOB: [facility] [id number] Hospital OUTPATIENTPolicy [address] Repository Number: 83[place], [id number] [place] [id number] Date:Plan Name:M3 05/22/2018 [facility] Primary [facility] OSBORNDOB: Insurance:MEDICARE OSBORNDOB: [facility] PART BPolicy Number: [id number] [id number] [address] [place] [address], Date:2018-05-[address] [place] [address] 19[address]Zmy: [id number] [place] [address]Efk: Name:[facility] ()Tel: (000) Administrators LLCPO () () [address] 000-0000 () [address]YH: 05/21/2018 LASHELL Franco Primary Insurance:500 LASHELL Olivarezvladimirfaraz OSBORNDOB: MEDICARE OSBORNDOB: [facility] [id number] Number: [address] Repository [address] [place] [id number] [id number]: Date:Plan Name:[facility] [id number] () 05/21/2018 Secondary LASHELL Joan Maximiliandidier Olivarezanjum Insurance:MEDICAL OSBORNDOB: [facility] [id number] Hospital OUTPATIENTPolicy [address] Repository Number: 83MIJOHAN, [id number] [place] [id number] Date:Plan Name: 05/21/2018 LASHELL T Primary Insurance:500 LASHELL Diopne OSBORNDOB: MEDICARE OSBORNDOB: [facility] [id number] Number: [address] Repository [address] [place] [address] [id number] [place] [address], [place] [id number]: Date:Plan Name:[facility] [id number] () 05/21/2018 Secondary LASHELL Gill Insurance:MEDICAL OSBORNDOB: [facility] [id number] [place] [address] Repository Number: 83MIJOHAN, [id number] [place] [id number] Date:Plan Name: 05/10/2018 LASHELL Franco Primary Insurance:500 LASHELL Gill OSBORNDOB: MEDICARE OSBORNDOB: [facility] [id number] [place] [address] [id number] Number: [address] Repository [address] [place] [address], [id number] [address] [place] [address], [place] [phone]: Date:Plan Name:[facility] [id number] () 05/10/2018 Secondary LASHELL Olivarezerene Insurance:MEDICAL OSBORNDOB: [facility] [id number] [place] [address] [address] Repository Number: 83MIJOHAN, [id number] [place] [id number] Date:Plan Name: 04/06/2018 LASHELL Franco Primary Insurance:500 LASHELL Gill OSBORNDOB: MEDICARE OSBORNDOB: [facility] [id number] Number: [address] Repository [address] [place] [address], [id number] [address] [place] [address], [place] [phone]: Date:Plan Name:[facility] [id number] () 04/06/2018 Secondary LASHELL Olivarezerene Insurance:MEDICAL OSBORNDOB: [facility] [id number] [place] [address] Repository Number: [id number], [id number] [place] [id number] Date:Plan Name: 02/12/2018 LASHELL Franco Primary Insurance:500 LASHELL Gill OSBORNDOB: MEDICARE OSBORNDOB: [facility] OUTPATIENTPolregional [facility] [id number] [facility] RT Number: [address] Repository 83ARJOHAN, [id number] [address] [place] [address] [id number]: Date:Plan Name:[facility] [id number] () 02/12/2018 Secondary LASHELL Gill Insurance:MEDICAL OSBORNDOB: [facility] [id number] [facility] OUTPATIENTPolregional [facility] [address] Repository Number: 83[facility] [id number] [place] [id number] Date:
== END ==
PROVIDERS: Referring Provider Internal Medicine Rheumatology; Visit Provider Internal Medicine Rheumatology
DX: M05.79 Rheumatoid arthritis with rheumatoid factor of multiple sites without organ or systems involvement (principal)
CPT/HCPCS: 87070; 87075; 87205; 89050; 89051; 89060

== ENCOUNTER → 2018-08-24 08:00 | Outpatient (CLI) | payer MEDICARE, OTHER, SELFPAY ==
[2018-08-24 10:37] LABS: Absolute Lymphocyte Count 1.72 X10^3/ul (0.83-4.51); Absolute Neutrophil Count 16.2 X10^3/uL (2.0-7.7); Basophil# 0.05 X10^3/uL; Basophil% 0.3 % (0-1); Eosinophil# 0.09 X10^3/uL; Eosinophils% 0.5 % (0-5); Hemoglobin 14.3 g/dl (12.0-15.0); Lymphocyte # 1.72 X10^3/ul (4.0); Lymphocyte % 8.7 % (19-41); Mean Corp Hgb Conc 32.5 g/gl (32-36); Mean Corpuscular Hgb 28.4 pg (27.0-32.0); Mean Corpuscular Volume 87.5 fL (81-99); Mean Platelet Vol. 10.4 fl (6.2-12.0); Monocyte# 1.08 X10^3/uL; Monocyte% 5.5 % (0-10); Neutrophil # 16.19 X10^3/uL (2.7-7.7); Neutrophil % 82.3 % (47-70); Platelet Count 362 K/mm3 (150-450); RBC Distribution Width CV 14.9 % (11.6-14.6); RBC Distribution Width SD 47.8 fl (35.1-43.9); Red Blood Count 5.03 M/mm3 (4.2-5.4); White Blood Count 19.7 K/mm3 (4.4-11.0)
[2018-08-24 10:38] LABS: POSITIVE COUNT YES; POSITIVE DIFFERENTIAL NO; POSITIVE MORPHOLOGY YES
[2018-08-24 11:09] LABS: ALB/GLOB Ratio 0.9 RATIO (0.9-2.4); AST(SGOT) 18 U/L (15-37); Alanine Aminotransfer ALT/SGPT 40 U/L (13-56); Albumin, Serum 3.5 g/dL (3.2-5.0); Alkaline Phosphatase 92 U/L (45-117); Anion Gap 9 (5-15); BUN 22 mg/dL (7-18); BUN/Creat Ratio 30.5 RATIO (10-20); Calcium,Total 8.9 mg/dL (8.5-10.1); Chloride 105 mmol/L (98-107); Creatinine, Serum 0.72 mg/dL (0.55-1.02); EST Glomerular Filtration Rate 85 mL/min (>60); Est Glom Filt Rate - Afr Amer 103 mL/min (>60); Globulin 3.9 g/dL (2.2-4.2); Glucose 119 mg/dL (74-106); Potassium 3.8 mmol/L (3.5-5.1); Protein, Total 7.4 g/dL (6.4-8.2); Sodium Level 142 mmol/L (136-145)
[2018-08-27 10:00] LABS: Pathologist Review Reviewed
[2018-08-27 12:39] LABS: CCP IgG Antibodies > 250 units (0-19); HEPATITIS B SURFACE AG Negative (Negative); Hep B Surface Antibodies Non Reactive (.); Hep C Antibodies <0.1 s/co ratio (0.0-0.9)
== END ==
PROVIDERS: Family Provider Family Medicine; PCP Family Medicine; Referring Provider Internal Medicine Rheumatology; Visit Provider Internal Medicine Rheumatology
DX: M05.79 Rheumatoid arthritis with rheumatoid factor of multiple sites without organ or systems involvement (principal); M21.40 Flat foot [pes planus] (acquired), unspecified foot; I10 Essential (primary) hypertension; I34.1 Nonrheumatic mitral (valve) prolapse
CPT/HCPCS: 36415; 80053; 85025; 86200; 86431; 86706; 86803; 87340

== ENCOUNTER → 2018-09-06 07:07 | Outpatient (CLI) | payer MEDICARE, OTHER, SELFPAY | PROVIDERS: Family Provider Family Medicine; PCP Family Medicine; Referring Provider Internal Medicine Rheumatology; Visit Provider Internal Medicine Rheumatology | DX: M05.79 Rheumatoid arthritis with rheumatoid factor of multiple sites without organ or systems involvement (principal) | CPT/HCPCS: 36415 ==

== ENCOUNTER → 2018-10-29 07:44 | Outpatient (CLI) | payer MEDICARE, OTHER, SELFPAY ==
[2018-10-29 10:04] LABS: Absolute Lymphocyte Count 1.28 X10^3/ul (0.83-4.51); Absolute Neutrophil Count 12.1 X10^3/uL (2.0-7.7); Basophil# 0.03 X10^3/uL; Basophil% 0.2 % (0-1); Eosinophil# 0.04 X10^3/uL; Eosinophils% 0.3 % (0-5); Hemoglobin 14.4 g/dl (12.0-15.0); Lymphocyte # 1.28 X10^3/ul (4.0); Mean Corp Hgb Conc 33.5 g/gl (32-36); Mean Corpuscular Volume 89.6 fL (81-99); Mean Platelet Vol. 11.4 fl (6.2-12.0); Monocyte# 0.66 X10^3/uL; Monocyte% 4.7 % (0-10); Neutrophil # 12.06 X10^3/uL (2.7-7.7); Neutrophil % 85.2 % (47-70); Platelet Count 274 K/mm3 (150-450); RBC Distribution Width CV 15.9 % (11.6-14.6); RBC Distribution Width SD 50.9 fl (35.1-43.9); White Blood Count 14.2 K/mm3 (4.4-11.0)
[2018-10-29 10:05] LABS: POSITIVE COUNT NO; POSITIVE DIFFERENTIAL NO; POSITIVE MORPHOLOGY NO
[2018-10-29 10:30] LABS: ALB/GLOB Ratio 0.8 RATIO (0.9-2.4); AST(SGOT) 20 U/L (15-37); Alanine Aminotransfer ALT/SGPT 31 U/L (13-56); Albumin, Serum 3.4 g/dL (3.2-5.0); Alkaline Phosphatase 83 U/L (45-117); Anion Gap 8 (5-15); BUN 12 mg/dL (7-18); BUN/Creat Ratio 16.5 RATIO (10-20); Calcium,Total 9.1 mg/dL (8.5-10.1); Chloride 104 mmol/L (98-107); Creatinine, Serum 0.73 mg/dL (0.55-1.02); EST Glomerular Filtration Rate 84 mL/min (>60); Est Glom Filt Rate - Afr Amer 102 mL/min (>60); Globulin 4.2 g/dL (2.2-4.2); Glucose 121 mg/dL (74-106); Potassium 3.6 mmol/L (3.5-5.1); Protein, Total 7.6 g/dL (6.4-8.2); Sodium Level 138 mmol/L (136-145)
== END ==
PROVIDERS: Family Provider Family Medicine; PCP Family Medicine; Referring Provider Internal Medicine Rheumatology; Visit Provider Internal Medicine Rheumatology
DX: M05.79 Rheumatoid arthritis with rheumatoid factor of multiple sites without organ or systems involvement (principal); M21.40 Flat foot [pes planus] (acquired), unspecified foot; I10 Essential (primary) hypertension; I34.1 Nonrheumatic mitral (valve) prolapse; Z79.899 Other long term (current) drug therapy
CPT/HCPCS: 36415; 80053; 85025

== ENCOUNTER → 2018-12-20 | Outpatient (CLI) | payer MEDICARE, OTHER, SELFPAY ==
[2018-12-20 10:12] LABS: Absolute Lymphocyte Count 1.34 X10^3/ul (0.83-4.51); Absolute Neutrophil Count 11.8 X10^3/uL (2.0-7.7); Basophil# 0.03 X10^3/uL; Basophil% 0.2 % (0-1); Eosinophil# 0.06 X10^3/uL; Eosinophils% 0.4 % (0-5); Hematocrit 43.5 % (37-47); Hemoglobin 14.6 g/dl (12.0-15.0); Lymphocyte # 1.34 X10^3/ul (4.0); Lymphocyte % 9.6 % (19-41); Mean Corp Hgb Conc 33.6 g/gl (32-36); Mean Corpuscular Hgb 30.4 pg (27.0-32.0); Mean Corpuscular Volume 90.6 fL (81-99); Monocyte# 0.63 X10^3/uL; Monocyte% 4.5 % (0-10); Neutrophil % 84.9 % (47-70); Platelet Count 245 K/mm3 (150-450); RBC Distribution Width CV 14.5 % (11.6-14.6); RBC Distribution Width SD 48.2 fl (35.1-43.9); White Blood Count 13.9 K/mm3 (4.4-11.0)
[2018-12-20 10:18] LABS: POSITIVE COUNT NO; POSITIVE DIFFERENTIAL NO; POSITIVE MORPHOLOGY NO
[2018-12-20 10:24] LABS: ALB/GLOB Ratio 0.8 RATIO (0.9-2.4); AST(SGOT) 24 U/L (15-37); Alanine Aminotransfer ALT/SGPT 34 U/L (13-56); Albumin, Serum 3.3 g/dL (3.2-5.0); Alkaline Phosphatase 85 U/L (45-117); Anion Gap 8 (5-15); BUN 17 mg/dL (7-18); BUN/Creat Ratio 20.3 RATIO (10-20); Calcium,Total 9.3 mg/dL (8.5-10.1); Chloride 103 mmol/L (98-107); Creatinine, Serum 0.84 mg/dL (0.55-1.02); EST Glomerular Filtration Rate 72 mL/min (>60); Est Glom Filt Rate - Afr Amer 87 mL/min (>60); Globulin 4.2 g/dL (2.2-4.2); Glucose 135 mg/dL (74-106); Potassium 3.7 mmol/L (3.5-5.1); Protein, Total 7.5 g/dL (6.4-8.2); Sodium Level 140 mmol/L (136-145)
== END | disposition home or self-care (01) ==
LOC: MTLAB 07:45
PROVIDERS: Family Provider Family Medicine; PCP Family Medicine; Referring Provider Internal Medicine Rheumatology; Visit Provider Internal Medicine Rheumatology
DX: M05.79 Rheumatoid arthritis with rheumatoid factor of multiple sites without organ or systems involvement (principal); Z79.899 Other long term (current) drug therapy; M21.40 Flat foot [pes planus] (acquired), unspecified foot; I10 Essential (primary) hypertension; I34.1 Nonrheumatic mitral (valve) prolapse
CPT/HCPCS: 36415; 80053; 85025

== ENCOUNTER → 2019-03-21 10:27 | Outpatient (CLI) | payer MEDICARE, OTHER, SELFPAY ==
[2019-03-21 12:07] LABS: Absolute Lymphocyte Count 1.18 X10^3/uL (0.83-4.51); Absolute Neutrophil Count 8.4 X10^3/uL (2.0-7.7); Basophil# 0.04 X10^3/uL; Basophil% 0.4 % (0-1); Eosinophil# 0.04 X10^3/uL; Eosinophils% 0.4 % (0-5); Hematocrit 43.5 % (37-47); Hemoglobin 14.6 g/dL (12.0-15.0); Lymphocyte # 1.18 X10^3/ul (4.0); Lymphocyte % 11.4 % (19-41); Mean Corp Hgb Conc 33.6 g/dL (32-36); Mean Corpuscular Hgb 30.8 pg (27.0-32.0); Mean Corpuscular Volume 91.8 fL (81-99); Mean Platelet Vol. 10.9 fl (6.2-12.0); Monocyte# 0.58 X10^3/uL; Monocyte% 5.6 % (0-10); NRBC Flagged by Analyzer 0 % (0-5); Neutrophil # 8.42 X10^3/uL (2.7-7.7); Neutrophil % 81.6 % (47-70); Platelet Count 241 K/mm3 (150-450); RBC Distribution Width CV 13.2 % (11.6-14.6); RBC Distribution Width SD 43.8 fl (35.1-43.9); Red Blood Count 4.74 M/mm3 (4.2-5.4); White Blood Count 10.3 K/mm3 (4.4-11.0)
[2019-03-21 12:17] LABS: ALB/GLOB Ratio 0.8 RATIO (0.9-2.4); AST(SGOT) 20 U/L (15-37); Alanine Aminotransfer ALT/SGPT 32 U/L (13-56); Albumin, Serum 3.4 g/dL (3.2-5.0); Alkaline Phosphatase 75 U/L (45-117); Anion Gap 1 (5-15); BUN 14 mg/dL (7-18); BUN/Creat Ratio 16.5 RATIO (10-20); Calcium,Total 9.4 mg/dL (8.5-10.1); Chloride 103 mmol/L (98-107); Creatinine, Serum 0.85 mg/dL (0.55-1.02); EST Glomerular Filtration Rate 70 mL/min (>60); Est Glom Filt Rate - Afr Amer 85 mL/min (>60); Globulin 4.2 g/dL (2.2-4.2); Glucose 106 mg/dL (74-106); Protein, Total 7.6 g/dL (6.4-8.2); Sodium Level 135 mmol/L (136-145)
== END ==
PROVIDERS: Family Provider Family Medicine; PCP Family Medicine; Referring Provider Internal Medicine Rheumatology; Visit Provider Internal Medicine Rheumatology
DX: M05.79 Rheumatoid arthritis with rheumatoid factor of multiple sites without organ or systems involvement (principal); M21.40 Flat foot [pes planus] (acquired), unspecified foot; I10 Essential (primary) hypertension; I34.1 Nonrheumatic mitral (valve) prolapse; Z79.899 Other long term (current) drug therapy
CPT/HCPCS: 36415; 80053; 85025

== ENCOUNTER → 2019-03-29 08:06 | Outpatient (CLI) | payer MEDICARE, OTHER, SELFPAY ==
--- NOTE | 2019-03-29 08:31 | RAD_ITS ---
STUDY: X-RAY CHEST REASON FOR EXAM: Female, 69 years old. Substernal chest pain TECHNIQUE: PA and lateral views of the chest. COMPARISON: None. FINDINGS: The lungs are clear and expanded. There is no demonstrated pleural abnormality. Normal size heart. Normal mediastinum and nkechi. Normal visualized pulmonary arteries. Normal visualized aortic arch and descending thoracic aorta. Normal visualized thoracic spine. Normal visualized ribs, clavicles, and shoulders. There is no demonstrated abnormality of the visualized soft tissue structures of the upper abdomen. RAD/Chest PA and Lateral IMPRESSION: Normal x-ray examination of the chest. Electronically Signed: Phillip Alfonso MD at 8:43 EDT , Service support ,
[2019-04-01 06:08] LABS: QNTFERON TB Mitogen Value > 10.00 IU/mL (.); QNTFERON TB Nil Value 0.02 IU/mL (.); QNTFERON TB1+ Ag Value 0.02 IU/mL (.); QNTFERON TB2+ Ag Value 0.02 IU/mL (.)
[2019-04-02 15:03] LABS: QNTIFERON TB Positive Criteria Negative (Negative)
== END ==
PROVIDERS: Family Provider Family Medicine; PCP Family Medicine; Referring Provider Internal Medicine Rheumatology; Visit Provider Internal Medicine Rheumatology
DX: M05.70 Rheumatoid arthritis with rheumatoid factor of unspecified site without organ or systems involvement (principal); M17.0 Bilateral primary osteoarthritis of knee; M25.562 Pain in left knee; M21.40 Flat foot [pes planus] (acquired), unspecified foot; I10 Essential (primary) hypertension; I34.1 Nonrheumatic mitral (valve) prolapse; Z79.899 Other long term (current) drug therapy
CPT/HCPCS: 36415; 71046; 86480

== ENCOUNTER → 2019-06-10 07:46 | Outpatient (CLI) | payer MEDICARE, OTHER, SELFPAY ==
[2019-06-10 10:02] LABS: Absolute Lymphocyte Count 1.73 X10^3/uL (0.83-4.51); Absolute Neutrophil Count 10.2 X10^3/uL (2.0-7.7); Basophil# 0.09 X10^3/uL; Basophil% 0.7 % (0-1); Eosinophil# 0.16 X10^3/uL; Eosinophils% 1.2 % (0-5); Hemoglobin 14.6 g/dL (12.0-15.0); Lymphocyte # 1.73 X10^3/ul (4.0); Lymphocyte % 13.1 % (19-41); Mean Corpuscular Hgb 31.8 pg (27.0-32.0); Mean Corpuscular Volume 93.7 fL (81-99); Mean Platelet Vol. 11.3 fl (6.2-12.0); Monocyte# 0.91 X10^3/uL; Monocyte% 6.9 % (0-10); NRBC Flagged by Analyzer 0 % (0-5); Neutrophil # 10.23 X10^3/uL (2.7-7.7); Neutrophil % 77.6 % (47-70); Platelet Count 228 K/mm3 (150-450); RBC Distribution Width CV 12.9 % (11.6-14.6); RBC Distribution Width SD 43.9 fl (35.1-43.9); Red Blood Count 4.59 M/mm3 (4.2-5.4); White Blood Count 13.2 K/mm3 (4.4-11.0)
[2019-06-10 10:15] LABS: ALB/GLOB Ratio 0.8 RATIO (0.9-2.4); AST(SGOT) 16 U/L (15-37); Alanine Aminotransfer ALT/SGPT 28 U/L (13-56); Albumin, Serum 3.4 g/dL (3.2-5.0); Alkaline Phosphatase 68 U/L (45-117); Anion Gap 6 (5-15); BUN 15 mg/dL (7-18); BUN/Creat Ratio 17.1 RATIO (10-20); Calcium,Total 9.4 mg/dL (8.5-10.1); Chloride 104 mmol/L (98-107); Creatinine, Serum 0.88 mg/dL (0.55-1.02); EST Glomerular Filtration Rate 67 mL/min (>60); Est Glom Filt Rate - Afr Amer 82 mL/min (>60); Glucose 105 mg/dL (74-106); Potassium 3.4 mmol/L (3.5-5.1); Protein, Total 7.4 g/dL (6.4-8.2); Sodium Level 141 mmol/L (136-145)
== END ==
PROVIDERS: Family Provider Family Medicine; PCP Family Medicine; Referring Provider Internal Medicine Rheumatology; Visit Provider Internal Medicine Rheumatology
DX: M17.0 Bilateral primary osteoarthritis of knee (principal); M05.79 Rheumatoid arthritis with rheumatoid factor of multiple sites without organ or systems involvement; Z79.899 Other long term (current) drug therapy
CPT/HCPCS: 36415; 80053; 85025

== ENCOUNTER → 2019-09-02 07:44 | Outpatient (CLI) | payer MEDICARE, OTHER, SELFPAY ==
[2019-09-02 10:15] LABS: Absolute Lymphocyte Count 2.44 X10^3/uL (0.83-4.51); Absolute Neutrophil Count 7.2 X10^3/uL (2.0-7.7); Basophil# 0.05 X10^3/uL; Basophil% 0.5 % (0-1); Eosinophils% 1.8 % (0-5); Hematocrit 42.3 % (37-47); Hemoglobin 14.1 g/dL (12.0-15.0); Lymphocyte # 2.44 X10^3/ul (4.0); Lymphocyte % 22.3 % (19-41); Mean Corp Hgb Conc 33.3 g/dL (32-36); Mean Corpuscular Hgb 31.2 pg (27.0-32.0); Mean Corpuscular Volume 93.6 fL (81-99); Mean Platelet Vol. 11.3 fl (6.2-12.0); Monocyte# 0.98 X10^3/uL; NRBC Flagged by Analyzer 0 % (0-5); Neutrophil # 7.21 X10^3/uL (2.7-7.7); Neutrophil % 65.9 % (47-70); Platelet Count 274 K/mm3 (150-450); RBC Distribution Width SD 44.1 fl (35.1-43.9); Red Blood Count 4.52 M/mm3 (4.2-5.4); White Blood Count 10.9 K/mm3 (4.4-11.0)
[2019-09-02 10:36] LABS: ALB/GLOB Ratio 0.8 RATIO (0.9-2.4); AST(SGOT) 20 U/L (15-37); Alanine Aminotransfer ALT/SGPT 34 U/L (13-56); Albumin, Serum 3.2 g/dL (3.2-5.0); Alkaline Phosphatase 65 U/L (45-117); Anion Gap 3 (5-15); BUN 16 mg/dL (7-18); BUN/Creat Ratio 20.4 RATIO (10-20); Chloride 103 mmol/L (98-107); Creatinine, Serum 0.79 mg/dL (0.55-1.02); EST Glomerular Filtration Rate 77 mL/min (>60); Est Glom Filt Rate - Afr Amer 93 mL/min (>60); Globulin 4.2 g/dL (2.2-4.2); Glucose 98 mg/dL (74-106); Potassium 4.1 mmol/L (3.5-5.1); Protein, Total 7.4 g/dL (6.4-8.2); Sodium Level 137 mmol/L (136-145)
== END ==
PROVIDERS: Family Provider Family Medicine; PCP Family Medicine; Referring Provider Internal Medicine Rheumatology; Visit Provider Internal Medicine Rheumatology
DX: M05.79 Rheumatoid arthritis with rheumatoid factor of multiple sites without organ or systems involvement (principal); M17.0 Bilateral primary osteoarthritis of knee; M21.40 Flat foot [pes planus] (acquired), unspecified foot; I10 Essential (primary) hypertension; I34.1 Nonrheumatic mitral (valve) prolapse
CPT/HCPCS: 36415; 80053; 85025

== ENCOUNTER → 2019-11-15 07:26 | Outpatient (CLI) | payer MEDICARE, OTHER, SELFPAY ==
[2019-11-15 10:05] LABS: Absolute Lymphocyte Count 1.87 X10^3/uL (0.83-4.51); Absolute Neutrophil Count 5.6 X10^3/uL (2.0-7.7); Basophil# 0.05 X10^3/uL; Basophil% 0.6 % (0-1); Eosinophil# 0.16 X10^3/uL; Eosinophils% 1.9 % (0-5); Hematocrit 41.1 % (37-47); Hemoglobin 13.7 g/dL (12.0-15.0); Lymphocyte # 1.87 X10^3/ul (4.0); Lymphocyte % 22.1 % (19-41); Mean Corp Hgb Conc 33.3 g/dL (32-36); Mean Corpuscular Hgb 31.1 pg (27.0-32.0); Mean Corpuscular Volume 93.2 fL (81-99); Mean Platelet Vol. 10.4 fl (6.2-12.0); Monocyte# 0.73 X10^3/uL; Monocyte% 8.6 % (0-10); NRBC Flagged by Analyzer 0 % (0-5); Neutrophil # 5.59 X10^3/uL (2.7-7.7); Neutrophil % 66.1 % (47-70); Platelet Count 334 K/mm3 (150-450); RBC Distribution Width CV 13.2 % (11.6-14.6); RBC Distribution Width SD 44.7 fl (35.1-43.9); Red Blood Count 4.41 M/mm3 (4.2-5.4); White Blood Count 8.5 K/mm3 (4.4-11.0)
[2019-11-15 10:25] LABS: ALB/GLOB Ratio 0.8 RATIO (0.9-2.4); AST(SGOT) 20 U/L (15-37); Alanine Aminotransfer ALT/SGPT 29 U/L (13-56); Albumin, Serum 3.4 g/dL (3.2-5.0); Alkaline Phosphatase 85 U/L (45-117); Anion Gap 8 (5-15); BUN 13 mg/dL (7-18); Calcium,Total 9.3 mg/dL (8.5-10.1); Chloride 101 mmol/L (98-107); Creatinine, Serum 0.65 mg/dL (0.55-1.02); EST Glomerular Filtration Rate 95 mL/min (>60); Est Glom Filt Rate - Afr Amer 115 mL/min (>60); Globulin 4.3 g/dL (2.2-4.2); Glucose 106 mg/dL (74-106); Potassium 3.4 mmol/L (3.5-5.1); Protein, Total 7.7 g/dL (6.4-8.2); Sodium Level 136 mmol/L (136-145)
== END ==
PROVIDERS: PCP Family Medicine; Referring Provider Internal Medicine Rheumatology; Visit Provider Internal Medicine Rheumatology
DX: M05.79 Rheumatoid arthritis with rheumatoid factor of multiple sites without organ or systems involvement (principal); M17.0 Bilateral primary osteoarthritis of knee; M21.40 Flat foot [pes planus] (acquired), unspecified foot; I10 Essential (primary) hypertension; I34.1 Nonrheumatic mitral (valve) prolapse; M05.70 Rheumatoid arthritis with rheumatoid factor of unspecified site without organ or systems involvement; Z79.899 Other long term (current) drug therapy
CPT/HCPCS: 36415; 80053; 85025

== ENCOUNTER → 2020-02-12 07:31 | Outpatient (CLI) | payer MEDICARE, OTHER, SELFPAY ==
[2020-02-12 10:24] LABS: Absolute Lymphocyte Count 2.36 X10^3/uL (0.83-4.51); Absolute Neutrophil Count 4.9 X10^3/uL (2.0-7.7); Basophil# 0.04 X10^3/uL; Basophil% 0.5 % (0-1); Eosinophil# 0.28 X10^3/uL; Eosinophils% 3.3 % (0-5); Hematocrit 43.5 % (37-47); Hemoglobin 14.1 g/dL (12.0-15.0); Lymphocyte # 2.36 X10^3/ul (4.0); Lymphocyte % 27.9 % (19-41); Mean Corp Hgb Conc 32.4 g/dL (32-36); Mean Corpuscular Hgb 31.9 pg (27.0-32.0); Mean Corpuscular Volume 98.4 fL (81-99); Mean Platelet Vol. 11.2 fl (6.2-12.0); Monocyte# 0.82 X10^3/uL; Monocyte% 9.7 % (0-10); NRBC Flagged by Analyzer 0 % (0-5); Neutrophil # 4.93 X10^3/uL (2.7-7.7); Neutrophil % 58.2 % (47-70); Platelet Count 248 K/mm3 (150-450); RBC Distribution Width CV 13.8 % (11.6-14.6); RBC Distribution Width SD 50.1 fl (35.1-43.9); Red Blood Count 4.42 M/mm3 (4.2-5.4); White Blood Count 8.5 K/mm3 (4.4-11.0)
[2020-02-12 10:55] LABS: Albumin, Serum 3.5 g/dL (3.2-5.0); BUN 19 mg/dL (7-18); Creatinine, Serum 0.76 mg/dL (0.55-1.02); EST Glomerular Filtration Rate 80 mL/min (>60); Est Glom Filt Rate - Afr Amer 96 mL/min (>60); Globulin 3.9 g/dL (2.2-4.2); Glucose 85 mg/dL (74-106); Protein, Total 7.4 g/dL (6.4-8.2)
[2020-02-12 10:56] LABS: ALB/GLOB Ratio 0.9 RATIO (0.9-2.4); AST(SGOT) 15 U/L (15-37); Alanine Aminotransfer ALT/SGPT 28 U/L (13-56); Alkaline Phosphatase 76 U/L (45-117); Anion Gap 8 (5-15); Calcium,Total 9.1 mg/dL (8.5-10.1); Chloride 105 mmol/L (98-107); Potassium 3.7 mmol/L (3.5-5.1); Sodium Level 140 mmol/L (136-145)
== END ==
PROVIDERS: PCP Family Medicine; Referring Provider Internal Medicine Rheumatology; Visit Provider Internal Medicine Rheumatology
DX: M05.70 Rheumatoid arthritis with rheumatoid factor of unspecified site without organ or systems involvement (principal); M17.0 Bilateral primary osteoarthritis of knee; M21.40 Flat foot [pes planus] (acquired), unspecified foot; I10 Essential (primary) hypertension; I34.1 Nonrheumatic mitral (valve) prolapse; Z79.899 Other long term (current) drug therapy
CPT/HCPCS: 36415; 80053; 85025

== ENCOUNTER → 2020-05-08 14:07 | Outpatient (CLI) | payer MEDICARE, OTHER, SELFPAY ==
[2020-05-08 18:06] LABS: Absolute Lymphocyte Count 2.53 X10^3/uL (0.83-4.51); Absolute Neutrophil Count 7.3 X10^3/uL (2.0-7.7); Basophil# 0.04 X10^3/uL; Basophil% 0.4 % (0-1); Eosinophil# 0.09 X10^3/uL; Eosinophils% 0.8 % (0-5); Hematocrit 43.6 % (37-47); Hemoglobin 14.6 g/dL (12.0-15.0); Lymphocyte # 2.53 X10^3/ul (4.0); Lymphocyte % 23.2 % (19-41); Mean Corp Hgb Conc 33.5 g/dL (32-36); Mean Corpuscular Hgb 32.2 pg (27.0-32.0); Mean Platelet Vol. 11.3 fl (6.2-12.0); Monocyte# 0.91 X10^3/uL; Monocyte% 8.3 % (0-10); NRBC Flagged by Analyzer 0 % (0-5); Neutrophil # 7.29 X10^3/uL (2.7-7.7); Neutrophil % 66.8 % (47-70); Platelet Count 247 K/mm3 (150-450); RBC Distribution Width CV 12.4 % (11.6-14.6); RBC Distribution Width SD 43.6 fl (35.1-43.9); Red Blood Count 4.54 M/mm3 (4.2-5.4); White Blood Count 10.9 K/mm3 (4.4-11.0)
[2020-05-08 18:19] LABS: ALB/GLOB Ratio 0.9 RATIO (0.9-2.4); AST(SGOT) 25 U/L (15-37); Alanine Aminotransfer ALT/SGPT 36 U/L (13-56); Albumin, Serum 3.6 g/dL (3.2-5.0); Alkaline Phosphatase 68 U/L (45-117); Anion Gap 6 (5-15); BUN 17 mg/dL (7-18); BUN/Creat Ratio 19.1 RATIO (10-20); Calcium,Total 9.3 mg/dL (8.5-10.1); Chloride 105 mmol/L (98-107); Creatinine, Serum 0.89 mg/dL (0.55-1.02); EST Glomerular Filtration Rate 66 mL/min (>60); Est Glom Filt Rate - Afr Amer 80 mL/min (>60); Globulin 4.1 g/dL (2.2-4.2); Glucose 91 mg/dL (74-106); Potassium 3.7 mmol/L (3.5-5.1); Protein, Total 7.7 g/dL (6.4-8.2); Sodium Level 141 mmol/L (136-145)
== END ==
PROVIDERS: PCP Family Medicine; Referring Provider Internal Medicine Rheumatology; Visit Provider Internal Medicine Rheumatology
DX: M05.70 Rheumatoid arthritis with rheumatoid factor of unspecified site without organ or systems involvement (principal); M17.0 Bilateral primary osteoarthritis of knee; M21.40 Flat foot [pes planus] (acquired), unspecified foot; I10 Essential (primary) hypertension; I34.1 Nonrheumatic mitral (valve) prolapse; Z79.899 Other long term (current) drug therapy
CPT/HCPCS: 36415; 80053; 85025

== ENCOUNTER → 2020-07-27 07:15 | Outpatient (CLI) | payer MEDICARE, OTHER, SELFPAY ==
[2020-07-27 10:11] LABS: Absolute Lymphocyte Count 2.25 X10^3/uL (0.83-4.51); Absolute Neutrophil Count 5.1 X10^3/uL (2.0-7.7); Basophil# 0.06 X10^3/uL; Basophil% 0.7 % (0-1); Eosinophil# 0.34 X10^3/uL; Eosinophils% 3.9 % (0-5); Hematocrit 44.4 % (37-47); Lymphocyte # 2.25 X10^3/ul (4.0); Lymphocyte % 25.9 % (19-41); Mean Corp Hgb Conc 33.8 g/dL (32-36); Mean Corpuscular Hgb 31.9 pg (27.0-32.0); Mean Corpuscular Volume 94.5 fL (81-99); Mean Platelet Vol. 11.8 fl (6.2-12.0); Monocyte% 10.4 % (0-10); NRBC Flagged by Analyzer 0 % (0-5); Neutrophil # 5.09 X10^3/uL (2.7-7.7); Neutrophil % 58.5 % (47-70); Platelet Count 221 K/mm3 (150-450); RBC Distribution Width CV 12.3 % (11.6-14.6); RBC Distribution Width SD 42.9 fl (35.1-43.9); White Blood Count 8.7 K/mm3 (4.4-11.0)
[2020-07-27 10:30] LABS: ALB/GLOB Ratio 0.9 RATIO (0.9-2.4); AST(SGOT) 22 U/L (15-37); Alanine Aminotransfer ALT/SGPT 33 U/L (13-56); Albumin, Serum 3.6 g/dL (3.2-5.0); Alkaline Phosphatase 72 U/L (45-117); Anion Gap 5 (5-15); BUN 16 mg/dL (7-18); BUN/Creat Ratio 21.4 RATIO (10-20); Calcium,Total 9.4 mg/dL (8.5-10.1); Chloride 104 mmol/L (98-107); Creatinine, Serum 0.75 mg/dL (0.55-1.02); EST Glomerular Filtration Rate 81 mL/min (>60); Est Glom Filt Rate - Afr Amer 98 mL/min (>60); Globulin 4.1 g/dL (2.2-4.2); Glucose 95 mg/dL (74-106); Potassium 3.8 mmol/L (3.5-5.1); Protein, Total 7.7 g/dL (6.4-8.2); Sodium Level 139 mmol/L (136-145)
== END ==
PROVIDERS: PCP Family Medicine; Referring Provider Internal Medicine Rheumatology; Visit Provider Internal Medicine Rheumatology
DX: M05.70 Rheumatoid arthritis with rheumatoid factor of unspecified site without organ or systems involvement (principal); M17.0 Bilateral primary osteoarthritis of knee; M21.40 Flat foot [pes planus] (acquired), unspecified foot; I10 Essential (primary) hypertension; I34.1 Nonrheumatic mitral (valve) prolapse; Z79.899 Other long term (current) drug therapy
CPT/HCPCS: 36415; 80053; 85025

== ENCOUNTER → 2020-10-12 07:57 | Outpatient (CLI) | payer MEDICARE, OTHER, SELFPAY ==
[2020-10-12 09:46] LABS: Absolute Neutrophil Count 5.3 X10^3/uL (2.0-7.7); Basophil# 0.05 X10^3/uL; Basophil% 0.5 % (0-1); Eosinophil# 0.27 X10^3/uL; Hemoglobin 14.4 g/dL (12.0-15.0); Lymphocyte % 26.3 % (19-41); Mean Corp Hgb Conc 33.5 g/dL (32-36); Mean Corpuscular Hgb 31.5 pg (27.0-32.0); Mean Corpuscular Volume 94.1 fL (81-99); Mean Platelet Vol. 11.4 fl (6.2-12.0); NRBC Flagged by Analyzer 0 % (0-5); Neutrophil # 5.29 X10^3/uL (2.7-7.7); Platelet Count 216 K/mm3 (150-450); RBC Distribution Width CV 12.8 % (11.6-14.6); RBC Distribution Width SD 43.5 fl (35.1-43.9); Red Blood Count 4.57 M/mm3 (4.2-5.4); White Blood Count 9.1 K/mm3 (4.4-11.0)
[2020-10-12 10:03] LABS: ALB/GLOB Ratio 0.9 RATIO (0.9-2.4); AST(SGOT) 21 U/L (15-37); Alanine Aminotransfer ALT/SGPT 37 U/L (13-56); Albumin, Serum 3.5 g/dL (3.2-5.0); Alkaline Phosphatase 79 U/L (45-117); Anion Gap 6 (5-15); BUN 15 mg/dL (7-18); BUN/Creat Ratio 19.4 RATIO (10-20); Calcium,Total 9.4 mg/dL (8.5-10.1); Chloride 105 mmol/L (98-107); Creatinine, Serum 0.78 mg/dL (0.55-1.02); EST Glomerular Filtration Rate 78 mL/min (>60); Est Glom Filt Rate - Afr Amer 94 mL/min (>60); Globulin 3.9 g/dL (2.2-4.2); Glucose 94 mg/dL (74-106); Potassium 3.3 mmol/L (3.5-5.1); Protein, Total 7.4 g/dL (6.4-8.2); Sodium Level 141 mmol/L (136-145)
== END ==
LOC: LAB 08:01 → MTLAB 08:02
PROVIDERS: PCP Family Medicine; Referring Provider Internal Medicine Rheumatology; Visit Provider Internal Medicine Rheumatology
DX: M05.70 Rheumatoid arthritis with rheumatoid factor of unspecified site without organ or systems involvement (principal); M17.0 Bilateral primary osteoarthritis of knee; M47.892 Other spondylosis, cervical region; M21.40 Flat foot [pes planus] (acquired), unspecified foot; I31.1 Chronic constrictive pericarditis; I10 Essential (primary) hypertension; Z79.899 Other long term (current) drug therapy
CPT/HCPCS: 36415; 80053; 85025

== ENCOUNTER → 2021-01-05 07:15 | Outpatient (CLI) | payer MEDICARE, OTHER, SELFPAY ==
[2021-01-05 10:04] LABS: Absolute Lymphocyte Count 1.94 X10^3/uL (0.83-4.51); Absolute Neutrophil Count 3.9 X10^3/uL (2.0-7.7); Basophil# 0.06 X10^3/uL; Basophil% 0.8 % (0-1); Eosinophil# 0.34 X10^3/uL; Eosinophils% 4.6 % (0-5); Hematocrit 43.4 % (37-47); Hemoglobin 14.5 g/dL (12.0-15.0); Lymphocyte # 1.94 X10^3/ul (0.83-4.51); Lymphocyte % 26.3 % (19-41); Mean Corp Hgb Conc 33.4 g/dL (32-36); Mean Corpuscular Hgb 31.5 pg (27.0-32.0); Mean Corpuscular Volume 94.1 fL (81-99); Mean Platelet Vol. 11.4 fl (6.2-12.0); Monocyte# 1.09 X10^3/uL; Monocyte% 14.7 % (0-10); NRBC Flagged by Analyzer 0 % (0-5); Neutrophil # 3.92 X10^3/uL (2.7-7.7); Neutrophil % 53.1 % (47-70); Platelet Count 204 K/mm3 (150-450); RBC Distribution Width CV 12.9 % (11.6-14.6); RBC Distribution Width SD 44.3 fl (35.1-43.9); Red Blood Count 4.61 M/mm3 (4.2-5.4); White Blood Count 7.4 K/mm3 (4.4-11.0)
[2021-01-05 10:43] LABS: ALB/GLOB Ratio 0.9 RATIO (0.9-2.4); AST(SGOT) 18 U/L (15-37); Alanine Aminotransfer ALT/SGPT 29 U/L (13-56); Albumin, Serum 3.4 g/dL (3.2-5.0); Alkaline Phosphatase 68 U/L (45-117); Anion Gap 4 (5-15); BUN 13 mg/dL (7-18); BUN/Creat Ratio 16.7 RATIO (10-20); Calcium,Total 9.4 mg/dL (8.5-10.1); Chloride 102 mmol/L (98-107); Creatinine, Serum 0.78 mg/dL (0.55-1.02); EST Glomerular Filtration Rate 77 mL/min (>60); Est Glom Filt Rate - Afr Amer 93 mL/min (>60); Globulin 3.8 g/dL (2.2-4.2); Glucose 109 mg/dL (74-106); Potassium 3.3 mmol/L (3.5-5.1); Protein, Total 7.2 g/dL (6.4-8.2); Sodium Level 139 mmol/L (136-145)
== END ==
PROVIDERS: PCP Family Medicine; Referring Provider Internal Medicine Rheumatology; Visit Provider Internal Medicine Rheumatology
DX: M05.70 Rheumatoid arthritis with rheumatoid factor of unspecified site without organ or systems involvement (principal); M17.0 Bilateral primary osteoarthritis of knee; M47.892 Other spondylosis, cervical region; M21.40 Flat foot [pes planus] (acquired), unspecified foot; I10 Essential (primary) hypertension; I34.1 Nonrheumatic mitral (valve) prolapse; Z79.899 Other long term (current) drug therapy
CPT/HCPCS: 36415; 80053; 85025

== ENCOUNTER → 2021-03-22 07:53 | Outpatient (CLI) | payer MEDICARE, OTHER, SELFPAY ==
[2021-03-22 10:08] LABS: Absolute Lymphocyte Count 2.71 X10^3/uL (0.83-4.51); Basophil# 0.06 X10^3/uL; Basophil% 0.7 % (0-1); Eosinophil# 0.47 X10^3/uL; Eosinophils% 5.8 % (0-5); Hemoglobin 14.4 g/dL (12.0-15.0); Lymphocyte # 2.71 X10^3/ul (0.83-4.51); Lymphocyte % 33.4 % (19-41); Mean Corp Hgb Conc 33.5 g/dL (32-36); Mean Corpuscular Hgb 32.3 pg (27.0-32.0); Mean Corpuscular Volume 96.4 fL (81-99); Mean Platelet Vol. 11.9 fl (6.2-12.0); Monocyte# 0.84 X10^3/uL; Monocyte% 10.3 % (0-10); NRBC Flagged by Analyzer 0 % (0-5); Neutrophil # 3.99 X10^3/uL (2.7-7.7); Neutrophil % 49.2 % (47-70); Platelet Count 197 K/mm3 (150-450); RBC Distribution Width CV 12.7 % (11.6-14.6); RBC Distribution Width SD 44.8 fl (35.1-43.9); Red Blood Count 4.46 M/mm3 (4.2-5.4); White Blood Count 8.1 K/mm3 (4.4-11.0)
[2021-03-22 10:20] LABS: ALB/GLOB Ratio 0.9 RATIO (0.9-2.4); AST(SGOT) 21 U/L (15-37); Alanine Aminotransfer ALT/SGPT 30 U/L (13-56); Albumin, Serum 3.5 g/dL (3.2-5.0); Alkaline Phosphatase 68 U/L (45-117); Anion Gap 2 (5-15); BUN 18 mg/dL (7-18); BUN/Creat Ratio 22.5 RATIO (10-20); Chloride 105 mmol/L (98-107); EST Glomerular Filtration Rate 75 mL/min (>60); Est Glom Filt Rate - Afr Amer 91 mL/min (>60); Globulin 3.7 g/dL (2.2-4.2); Glucose 100 mg/dL (74-106); Potassium 3.8 mmol/L (3.5-5.1); Protein, Total 7.2 g/dL (6.4-8.2); Sodium Level 139 mmol/L (136-145)
== END ==
PROVIDERS: PCP Family Medicine; Referring Provider Internal Medicine Rheumatology; Visit Provider Internal Medicine Rheumatology
DX: M05.70 Rheumatoid arthritis with rheumatoid factor of unspecified site without organ or systems involvement (principal); M17.0 Bilateral primary osteoarthritis of knee; M47.892 Other spondylosis, cervical region; M21.40 Flat foot [pes planus] (acquired), unspecified foot; I10 Essential (primary) hypertension; I34.1 Nonrheumatic mitral (valve) prolapse; Z79.899 Other long term (current) drug therapy
CPT/HCPCS: 36415; 80053; 85025

== ENCOUNTER 2021-09-09 07:50 | Outpatient (CLI) | payer MEDICARE, OTHER, SELFPAY ==
[2021-09-09 10:22] LABS: Absolute Lymphocyte Count 2.34 X10^3/uL (0.83-4.51); Absolute Neutrophil Count 3.3 X10^3/uL (2.0-7.7); Basophil# 0.06 X10^3/uL; Basophil% 0.9 % (0-1); Eosinophil# 0.29 X10^3/uL; Eosinophils% 4.2 % (0-5); Hematocrit 43.3 % (37-47); Hemoglobin 15.4 g/dL (12.0-15.0); Lymphocyte # 2.34 X10^3/ul (0.83-4.51); Lymphocyte % 33.6 % (19-41); Mean Corp Hgb Conc 35.6 g/dL (32-36); Mean Corpuscular Hgb 33.3 pg (27.0-32.0); Mean Corpuscular Volume 93.7 fL (81-99); Mean Platelet Vol. 11.9 fl (6.2-12.0); Monocyte# 0.93 X10^3/uL; Monocyte% 13.4 % (0-10); NRBC Flagged by Analyzer 0 % (0-5); Neutrophil # 3.32 X10^3/uL (2.7-7.7); Neutrophil % 47.6 % (47-70); Platelet Count 188 K/mm3 (150-450); RBC Distribution Width CV 12.7 % (11.6-14.6); Red Blood Count 4.62 M/mm3 (4.2-5.4)
[2021-09-09 10:29] LABS: ALB/GLOB Ratio 0.8 RATIO (0.9-2.4); AST(SGOT) 24 U/L (15-37); Alanine Aminotransfer ALT/SGPT 37 U/L (13-56); Albumin, Serum 3.4 g/dL (3.2-5.0); Alkaline Phosphatase 63 U/L (45-117); Anion Gap 4 (5-15); BUN 18 mg/dL (7-18); BUN/Creat Ratio 20.2 RATIO (10-20); Calcium,Total 9.8 mg/dL (8.5-10.1); Chloride 105 mmol/L (98-107); Creatinine, Serum 0.89 mg/dL (0.55-1.02); EST Glomerular Filtration Rate 66 mL/min (>60); Est Glom Filt Rate - Afr Amer 80 mL/min (>60); Glucose 110 mg/dL (74-106); Protein, Total 7.4 g/dL (6.4-8.2); Sodium Level 139 mmol/L (136-145)
== END 2021-09-09 23:59 | disposition short-term general hospital (02) ==
LOC: MTLAB 07:52
PROVIDERS: PCP Family Medicine; Referring Provider Internal Medicine Rheumatology; Visit Provider Internal Medicine Rheumatology
DX: M05.70 Rheumatoid arthritis with rheumatoid factor of unspecified site without organ or systems involvement (principal); Z79.899 Other long term (current) drug therapy; M17.0 Bilateral primary osteoarthritis of knee; M47.892 Other spondylosis, cervical region; M21.40 Flat foot [pes planus] (acquired), unspecified foot; I10 Essential (primary) hypertension; I34.1 Nonrheumatic mitral (valve) prolapse
CPT/HCPCS: 36415; 80053; 85025

== ENCOUNTER 2021-11-30 07:29 | Outpatient (CLI) | payer MEDICARE, OTHER, SELFPAY ==
[2021-11-30 10:06] LABS: Absolute Lymphocyte Count 2.11 X10^3/uL (0.83-4.51); Basophil# 0.06 X10^3/uL; Basophil% 0.7 % (0-1); Eosinophil# 0.26 X10^3/uL; Eosinophils% 3.1 % (0-5); Hematocrit 43.7 % (37-47); Hemoglobin 15.5 g/dL (12.0-15.0); Lymphocyte # 2.11 X10^3/ul (0.83-4.51); Mean Corp Hgb Conc 35.5 g/dL (32-36); Mean Platelet Vol. 11.8 fl (6.2-12.0); Monocyte# 0.97 X10^3/uL; Monocyte% 11.5 % (0-10); NRBC Flagged by Analyzer 0 % (0-5); Neutrophil # 4.99 X10^3/uL (2.7-7.7); Neutrophil % 59.2 % (47-70); Platelet Count 189 K/mm3 (150-450); RBC Distribution Width CV 12.5 % (11.6-14.6); RBC Distribution Width SD 42.5 fl (35.1-43.9); White Blood Count 8.4 K/mm3 (4.4-11.0)
[2021-11-30 10:18] LABS: ALB/GLOB Ratio 0.9 RATIO (0.9-2.4); AST(SGOT) 22 U/L (15-37); Alanine Aminotransfer ALT/SGPT 34 U/L (13-56); Albumin, Serum 3.6 g/dL (3.2-5.0); Alkaline Phosphatase 72 U/L (45-117); Anion Gap 5 (5-15); BUN 16 mg/dL (7-18); BUN/Creat Ratio 20.4 RATIO (10-20); Calcium,Total 9.8 mg/dL (8.5-10.1); Chloride 102 mmol/L (98-107); Creatinine, Serum 0.78 mg/dL (0.55-1.02); EST Glomerular Filtration Rate 76 mL/min (>60); Est Glom Filt Rate - Afr Amer 92 mL/min (>60); Glucose 99 mg/dL (74-106); Potassium 3.9 mmol/L (3.5-5.1); Protein, Total 7.6 g/dL (6.4-8.2); Sodium Level 139 mmol/L (136-145)
== END 2021-11-30 23:59 | disposition home or self-care (01) ==
PROVIDERS: PCP Family Medicine; Referring Provider Internal Medicine Rheumatology; Visit Provider Internal Medicine Rheumatology
DX: M05.70 Rheumatoid arthritis with rheumatoid factor of unspecified site without organ or systems involvement (principal); M17.0 Bilateral primary osteoarthritis of knee; M47.892 Other spondylosis, cervical region; M21.40 Flat foot [pes planus] (acquired), unspecified foot; I10 Essential (primary) hypertension; I34.1 Nonrheumatic mitral (valve) prolapse; Z79.899 Other long term (current) drug therapy
CPT/HCPCS: 36415; 80053; 85025

== ENCOUNTER → 2022-03-09 | Outpatient (CLI) | payer MEDICARE, OTHER, SELFPAY ==
[2022-03-09 10:17] LABS: Absolute Lymphocyte Count 1.64 X10^3/uL (0.83-4.51); Absolute Neutrophil Count 3.5 X10^3/uL (2.0-7.7); Basophil# 0.05 X10^3/uL; Basophil% 0.8 % (0-1); Eosinophil# 0.26 X10^3/uL; Eosinophils% 4.2 % (0-5); Hematocrit 41.5 % (37-47); Hemoglobin 14.4 g/dL (12.0-15.0); Lymphocyte # 1.64 X10^3/ul (0.83-4.51); Lymphocyte % 26.2 % (19-41); Mean Corp Hgb Conc 34.7 g/dL (32-36); Mean Corpuscular Hgb 32.8 pg (27.0-32.0); Mean Corpuscular Volume 94.5 fL (81-99); Mean Platelet Vol. 11.8 fl (6.2-12.0); Monocyte# 0.82 X10^3/uL; Monocyte% 13.1 % (0-10); NRBC Flagged by Analyzer 0 % (0-5); Neutrophil # 3.46 X10^3/uL (2.7-7.7); Neutrophil % 55.2 % (47-70); Platelet Count 192 K/mm3 (150-450); RBC Distribution Width CV 12.6 % (11.6-14.6); RBC Distribution Width SD 43.2 fl (35.1-43.9); Red Blood Count 4.39 M/mm3 (4.2-5.4); White Blood Count 6.3 K/mm3 (4.4-11.0)
[2022-03-09 10:55] LABS: ALB/GLOB Ratio 0.9 RATIO (0.9-2.4); AST(SGOT) 21 U/L (15-37); Alanine Aminotransfer ALT/SGPT 30 U/L (13-56); Albumin, Serum 3.4 g/dL (3.2-5.0); Alkaline Phosphatase 66 U/L (45-117); Anion Gap 3 (5-15); BUN 14 mg/dL (7-18); BUN/Creat Ratio 17.1 RATIO (10-20); Calcium,Total 9.2 mg/dL (8.5-10.1); Chloride 105 mmol/L (98-107); Creatinine, Serum 0.82 mg/dL (0.55-1.02); EST Glomerular Filtration Rate 73 mL/min (>60); Est Glom Filt Rate - Afr Amer 88 mL/min (>60); Globulin 3.7 g/dL (2.2-4.2); Glucose 101 mg/dL (74-106); Potassium 3.8 mmol/L (3.5-5.1); Protein, Total 7.1 g/dL (6.4-8.2); Sodium Level 138 mmol/L (136-145)
== END | disposition home or self-care (01) ==
LOC: MTLAB 07:10
PROVIDERS: PCP Family Medicine; Referring Provider Internal Medicine Rheumatology; Visit Provider Internal Medicine Rheumatology
DX: M05.70 Rheumatoid arthritis with rheumatoid factor of unspecified site without organ or systems involvement (principal); M17.0 Bilateral primary osteoarthritis of knee; M47.892 Other spondylosis, cervical region; M21.40 Flat foot [pes planus] (acquired), unspecified foot; I10 Essential (primary) hypertension; I34.1 Nonrheumatic mitral (valve) prolapse; Z79.899 Other long term (current) drug therapy
CPT/HCPCS: 36415; 80053; 85025

== ENCOUNTER → 2022-06-01 | Outpatient (CLI) | payer MEDICARE, OTHER, SELFPAY ==
[2022-06-01 10:12] LABS: Absolute Lymphocyte Count 1.96 X10^3/uL (0.83-4.51); Absolute Neutrophil Count 4.3 X10^3/uL (2.0-7.7); Basophil# 0.05 X10^3/uL; Basophil% 0.7 % (0-1); Eosinophil# 0.32 X10^3/uL; Eosinophils% 4.3 % (0-5); Hematocrit 42.9 % (37-47); Lymphocyte # 1.96 X10^3/ul (0.83-4.51); Lymphocyte % 26.3 % (19-41); Mean Corpuscular Hgb 33.4 pg (27.0-32.0); Mean Corpuscular Volume 95.5 fL (81-99); Mean Platelet Vol. 11.5 fl (6.2-12.0); Monocyte# 0.77 X10^3/uL; Monocyte% 10.3 % (0-10); NRBC Flagged by Analyzer 0 % (0-5); Neutrophil # 4.33 X10^3/uL (2.7-7.7); Platelet Count 208 K/mm3 (150-450); RBC Distribution Width CV 12.5 % (11.6-14.6); RBC Distribution Width SD 43.6 fl (35.1-43.9); Red Blood Count 4.49 M/mm3 (4.2-5.4); White Blood Count 7.5 K/mm3 (4.4-11.0)
[2022-06-01 10:34] LABS: ALB/GLOB Ratio 0.8 RATIO (0.9-2.4); AST(SGOT) 22 U/L (15-37); Alanine Aminotransfer ALT/SGPT 43 U/L (13-56); Albumin, Serum 3.3 g/dL (3.2-5.0); Alkaline Phosphatase 73 U/L (45-117); Anion Gap 6 (5-15); BUN 18 mg/dL (7-18); BUN/Creat Ratio 22.3 RATIO (10-20); Calcium,Total 9.4 mg/dL (8.5-10.1); Chloride 102 mmol/L (98-107); Creatinine, Serum 0.81 mg/dL (0.55-1.02); EST Glomerular Filtration Rate 74 mL/min (>60); Est Glom Filt Rate - Afr Amer 89 mL/min (>60); Glucose 102 mg/dL (74-106); Potassium 3.9 mmol/L (3.5-5.1); Protein, Total 7.3 g/dL (6.4-8.2); Sodium Level 138 mmol/L (136-145)
== END | disposition home or self-care (01) ==
LOC: MTLAB 07:14
PROVIDERS: PCP Family Medicine; Referring Provider Internal Medicine Rheumatology; Visit Provider Internal Medicine Rheumatology
DX: M05.70 Rheumatoid arthritis with rheumatoid factor of unspecified site without organ or systems involvement (principal); M17.0 Bilateral primary osteoarthritis of knee; M47.892 Other spondylosis, cervical region; M21.40 Flat foot [pes planus] (acquired), unspecified foot; I10 Essential (primary) hypertension; I34.1 Nonrheumatic mitral (valve) prolapse; Z79.899 Other long term (current) drug therapy
CPT/HCPCS: 36415; 80053; 85025

== ENCOUNTER → 2022-09-08 | Outpatient (CLI) | payer MEDICARE, SELFPAY ==
[2022-09-08 10:27] LABS: Absolute Lymphocyte Count 1.83 X10^3/uL (0.83-4.51); Basophil# 0.02 X10^3/uL; Basophil% 0.3 % (0-1); Eosinophil# 0.18 X10^3/uL; Eosinophils% 2.7 % (0-5); Hemoglobin 14.3 g/dL (12.0-15.0); Lymphocyte # 1.83 X10^3/ul (0.83-4.51); Lymphocyte % 27.2 % (19-41); Mean Corpuscular Hgb 32.9 pg (27.0-32.0); Mean Corpuscular Volume 96.8 fL (81-99); Mean Platelet Vol. 11.3 fl (6.2-12.0); Monocyte# 0.66 X10^3/uL; Monocyte% 9.8 % (0-10); NRBC Flagged by Analyzer 0 % (0-5); Neutrophil # 4.02 X10^3/uL (2.7-7.7); Neutrophil % 59.7 % (47-70); Platelet Count 208 K/mm3 (150-450); RBC Distribution Width CV 12.6 % (11.6-14.6); RBC Distribution Width SD 44.1 fl (35.1-43.9); Red Blood Count 4.34 M/mm3 (4.2-5.4); White Blood Count 6.7 K/mm3 (4.4-11.0)
[2022-09-08 10:50] LABS: AST(SGOT) 13 U/L (15-37); Alanine Aminotransfer ALT/SGPT 32 U/L (13-56); Albumin, Serum 3.4 g/dL (3.2-5.0); Alkaline Phosphatase 69 U/L (45-117); Anion Gap 5 (5-15); BUN 17 mg/dL (7-18); BUN/Creat Ratio 22.1 RATIO (10-20); Chloride 105 mmol/L (98-107); Creatinine, Serum 0.77 mg/dL (0.55-1.02); EST Glomerular Filtration Rate 78 mL/min (>60); Est Glom Filt Rate - Afr Amer 94 mL/min (>60); Globulin 3.3 g/dL (2.2-4.2); Glucose 124 mg/dL (74-106); Potassium 3.8 mmol/L (3.5-5.1); Protein, Total 6.7 g/dL (6.4-8.2); Sodium Level 139 mmol/L (136-145)
== END | disposition home or self-care (01) ==
LOC: MTLAB 07:19
PROVIDERS: PCP Family Medicine; Referring Provider Internal Medicine Rheumatology; Visit Provider Internal Medicine Rheumatology
DX: M05.70 Rheumatoid arthritis with rheumatoid factor of unspecified site without organ or systems involvement (principal); M17.0 Bilateral primary osteoarthritis of knee; M47.892 Other spondylosis, cervical region; M21.40 Flat foot [pes planus] (acquired), unspecified foot; I10 Essential (primary) hypertension; I34.1 Nonrheumatic mitral (valve) prolapse; Z79.899 Other long term (current) drug therapy
CPT/HCPCS: 36415; 80053; 85025

== ENCOUNTER → 2022-11-23 | Outpatient (CLI) | payer MEDICARE, SELFPAY ==
[2022-11-23 10:06] LABS: Absolute Lymphocyte Count 1.84 X10^3/uL (0.83-4.51); Absolute Neutrophil Count 4.5 X10^3/uL (2.0-7.7); Basophil# 0.04 X10^3/uL; Basophil% 0.5 % (0-1); Eosinophil# 0.22 X10^3/uL; Eosinophils% 2.9 % (0-5); Hematocrit 42.2 % (37-47); Hemoglobin 14.6 g/dL (12.0-15.0); Lymphocyte # 1.84 X10^3/ul (0.83-4.51); Lymphocyte % 24.4 % (19-41); Mean Corp Hgb Conc 34.6 g/dL (32-36); Mean Corpuscular Hgb 32.7 pg (27.0-32.0); Mean Corpuscular Volume 94.6 fL (81-99); Mean Platelet Vol. 10.8 fl (6.2-12.0); Monocyte# 0.88 X10^3/uL; Monocyte% 11.7 % (0-10); NRBC Flagged by Analyzer 0 % (0-5); Neutrophil % 59.8 % (47-70); Platelet Count 220 K/mm3 (150-450); RBC Distribution Width CV 12.5 % (11.6-14.6); RBC Distribution Width SD 43.2 fl (35.1-43.9); Red Blood Count 4.46 M/mm3 (4.2-5.4); White Blood Count 7.5 K/mm3 (4.4-11.0)
[2022-11-23 10:20] LABS: ALB/GLOB Ratio 0.9 RATIO (0.9-2.4); AST(SGOT) 25 U/L (15-37); Alanine Aminotransfer ALT/SGPT 32 U/L (13-56); Albumin, Serum 3.4 g/dL (3.2-5.0); Alkaline Phosphatase 79 U/L (45-117); Anion Gap 4 (5-15); BUN 23 mg/dL (7-18); BUN/Creat Ratio 27.7 RATIO (10-20); Calcium,Total 9.1 mg/dL (8.5-10.1); Chloride 103 mmol/L (98-107); Creatinine, Serum 0.83 mg/dL (0.55-1.02); EST Glomerular Filtration Rate 71 mL/min (>60); Est Glom Filt Rate - Afr Amer 86 mL/min (>60); Globulin 3.6 g/dL (2.2-4.2); Glucose 117 mg/dL (74-106); Potassium 3.8 mmol/L (3.5-5.1); Sodium Level 138 mmol/L (136-145)
== END | disposition home or self-care (01) ==
LOC: MTLAB 07:48
PROVIDERS: PCP Family Medicine; Referring Provider Internal Medicine Rheumatology; Visit Provider Internal Medicine Rheumatology
DX: M05.70 Rheumatoid arthritis with rheumatoid factor of unspecified site without organ or systems involvement (principal); M17.0 Bilateral primary osteoarthritis of knee; M47.892 Other spondylosis, cervical region; Z79.899 Other long term (current) drug therapy
CPT/HCPCS: 36415; 80053; 85025

== ENCOUNTER → 2023-02-20 | Outpatient (CLI) | payer MEDICARE, SELFPAY ==
[2023-02-20 10:24] LABS: Absolute Lymphocyte Count 1.74 X10^3/uL (0.83-4.51); Absolute Neutrophil Count 3.6 X10^3/uL (2.0-7.7); Basophil# 0.07 X10^3/uL; Basophil% 1.1 % (0-1); Eosinophil# 0.24 X10^3/uL; Eosinophils% 3.7 % (0-5); Hematocrit 41.3 % (37-47); Hemoglobin 14.1 g/dL (12.0-15.0); Lymphocyte # 1.74 X10^3/ul (0.83-4.51); Lymphocyte % 26.6 % (19-41); Mean Corp Hgb Conc 34.1 g/dL (32-36); Mean Corpuscular Hgb 32.3 pg (27.0-32.0); Mean Corpuscular Volume 94.7 fL (81-99); Mean Platelet Vol. 11.1 fl (6.2-12.0); Monocyte# 0.82 X10^3/uL; Monocyte% 12.6 % (0-10); NRBC Flagged by Analyzer 0 % (0-5); Neutrophil # 3.62 X10^3/uL (2.7-7.7); Neutrophil % 55.4 % (47-70); Platelet Count 208 K/mm3 (150-450); RBC Distribution Width CV 12.3 % (11.6-14.6); Red Blood Count 4.36 M/mm3 (4.2-5.4); White Blood Count 6.5 K/mm3 (4.4-11.0)
[2023-02-20 10:52] LABS: ALB/GLOB Ratio 0.9 RATIO (0.9-2.4); AST(SGOT) 21 U/L (15-37); Alanine Aminotransfer ALT/SGPT 35 U/L (13-56); Albumin, Serum 3.3 g/dL (3.2-5.0); Alkaline Phosphatase 71 U/L (45-117); Anion Gap 4 (5-15); BUN 18 mg/dL (7-18); BUN/Creat Ratio 21.8 RATIO (10-20); Calcium,Total 9.4 mg/dL (8.5-10.1); Chloride 105 mmol/L (98-107); Creatinine, Serum 0.83 mg/dL (0.55-1.02); EST Glomerular Filtration Rate 72 mL/min (>60); Est Glom Filt Rate - Afr Amer 87 mL/min (>60); Globulin 3.7 g/dL (2.2-4.2); Glucose 115 mg/dL (74-106); Potassium 3.7 mmol/L (3.5-5.1); Sodium Level 138 mmol/L (136-145)
== END | disposition home or self-care (01) ==
PROVIDERS: Referring Provider Internal Medicine Rheumatology; Visit Provider Internal Medicine Rheumatology
DX: M05.70 Rheumatoid arthritis with rheumatoid factor of unspecified site without organ or systems involvement (principal); Z79.899 Other long term (current) drug therapy
CPT/HCPCS: 36415; 80053; 85025